=== PATIENT | female | born 1935 | race Caucasian/White ===

== ENCOUNTER 2021-07-22 15:27 | Outpatient (CLI) | payer MEDICARE, SELFPAY ==
--- NOTE | ~2021-07-22 | MR_ITS ---
EXAMINATION: MR lumbar spine wo con DATE: 07/22/2021 16:37 INDICATION: Radiculopathy, lumbar region. TECHNIQUE: Magnetic resonance imaging (MRI) of the lumbar spine was performed without intravenous con trast. Sequences included sagittal T2-weighted FSE, sagittal T2-weighted FS FSE, sagittal T1-weighted FSE, and axial T2-weighted FSE. COMPARISON: None FINDINGS: There is 15 degrees levoscoliosis of lumbar spine. There is 3 mm anterolisthesis of L2 on L 3 and L3 on L4. There is 5 mm anterolisthesis of L5 on S1. Vertebral body heights are normal. There i s moderately decreased disc height at L2-L3 and L5-S1 and mildly decreased disc height at L3-L4. The distal spinal cord signal intensity is normal. The conus medullaris is at T12-L1. The following disc levels are specifically discussed: L1-L2: The disc is bulging and has an annular fissure. There is severe right and moderate left facet joint osteoarthritis. There is mild bilateral neural foraminal stenosis. There is mild central canal stenosis. L2-L3: The disc is bulging and has an annular fissure. There is severe right and mild left facet join t osteoarthritis. There is mild bilateral neural foraminal stenosis. There is mild central canal sten osis. L3-L4: The disc is bulging and has an annular fissure. There is severe bilateral facet joint osteoart hritis. There is mild bilateral neural foraminal stenosis. There is mild central canal stenosis. L4-L5: The disc is also seen. There is severe bilateral facet joint osteoarthritis. There is moderate bilateral neural foraminal stenosis. There is mild central canal stenosis. L5-S1: The disc is bulging and has an annular fissure. There is severe bilateral facet joint osteoart hritis. There is mild right and moderate left neural foraminal stenosis. There is mild central canal stenosis. There is moderate stenosis of left lateral recess. IMPRESSION: 1. Moderate lumbar spondylosis. 2. Lumbar levoscoliosis. Reviewed, dictated and finalized at location A.
== END 2021-07-22 15:28 | disposition home or self-care (01) ==
LOC: ANHIMG 15:32
PROVIDERS: PCP Family Medicine; Visit Provider Family Medicine
DX: M54.16 Radiculopathy, lumbar region (principal); M47.816 Spondylosis without myelopathy or radiculopathy, lumbar region; M41.86 Other forms of scoliosis, lumbar region
CPT/HCPCS: 72148

== ENCOUNTER → 2021-10-14 14:53 | Outpatient (CLI) | payer MEDICARE, SELFPAY ==
--- NOTE | ~2021-10-14 | XR_ITS ---
XR hip RT 2V w AP pelvis 10/14/2021 15:52 Indication: Right hip pain Procedure: 3 views right hip Comparison: No prior studies for comparison. Findings: There is mild symmetric osteoarthritis of the hips. No fracture, subluxation or dislocation . No significant soft tissue abnormality. No foreign bodies. There is lower lumbar spondylosis partia lly visualized. Impression: 1: Mild symmetric osteoarthritis of the hips.. Reviewed, dictated and finalized at location A. AND MAXILLOFACIAL PATHOLOGIST Impression: 1: Mild symmetric osteoarthritis of the hips..
== END ==
PROVIDERS: PCP Family Medicine; Visit Provider Nurse Practitioner Adult Health
DX: M25.551 Pain in right hip (principal); M16.0 Bilateral primary osteoarthritis of hip
CPT/HCPCS: 73502

== ENCOUNTER 2022-01-29 09:39 | Outpatient (CLI) | payer MEDICARE, SELFPAY ==
[2022-01-29 10:15] LABS: Hematocrit 38.4 % (37.0-47.0); Hemoglobin 12.5 g/dL (12.0-15.0); Mean Corpuscular HGB Conc 32.6 g/dl (32-36); Mean Corpuscular Hemoglobin 30.6 pg (26-34); Mean Corpuscular Volume 93.9 fl (80-100); Mean Platelet Volume 10.8 fl (7.4-10.4); Platelet Count Result 155 k/mm3 (150-375); Red Blood Count 4.09 M/mm3 (4.2-5.4); Red Cell Distribution Width 12.5 % (11.5-14.5); White Blood Count 6.5 K/mm3 (4.5-10.0)
[2022-01-29 10:20] LABS: Add Urine Microscopic? YES; Appearance Urine Clear (Clear); Bilirubin Urine Negative (Negative); Blood Urine Negative (Negative); Color Urine Yellow (Yellow); Glucose Urine UA Negative (Negative); Ketones Urine Negative (Negative); Leukocyte Esterase Ur 3+ LEU/UL (NEGATIVE); Nitrate Urine Negative (Negative); Protein Urine Negative (Negative); Specific Grav Ur 1.008 (1.001-1.035); Urobilinogen Urine Negative mg/dL (<2.0)
[2022-01-29 10:45] LABS: Alanine Aminotransferase 23 U/L (4-35); Albumin Level 4.5 g/dL (3.5-5.1); Alkaline Phosphatase 66 U/L (38-126); Anion Gap 7 mmol/L (8-16); Aspartate Amino Transferase 41 U/L (14-36); Bilirubin,Total 0.9 mg/dL (0.2-1.3); Blood Urea Nitrogen 32 mg/dL (7-17); Calcium 9.2 mg/dL (8.4-10.2); Carbon Dioxide 29 mmol/L (22-30); Chloride 102 mmol/L (98-107); Cholesterol 176 mg/dL (0-200); Estimated Glomerular Filt Rate 28; Glucose 98 mg/dL (65-110); HDL Direct 42 mg/dL; Potassium 4.1 mmol/L (3.4-5.0); Sodium 138 mmol/L (137-145); Triglycerides 207 mg/dL (<150)
[2022-01-29 11:16] LABS: Thyroid Stimulating Hormone 0.551 uIU/mL (0.465-4.680)
[2022-01-29 13:18] LABS: LDL Cholesterol Direct 85 mg/dL
== END 2022-01-29 09:40 | disposition home or self-care (01) ==
PROVIDERS: PCP Family Medicine; Visit Provider Family Medicine
DX: E78.2 Mixed hyperlipidemia (principal); I11.9 Hypertensive heart disease without heart failure; R53.83 Other fatigue
CPT/HCPCS: 36415; 80053; 80061; 81001; 84443; 85027

== ENCOUNTER 2022-12-07 18:42 | Inpatient (IN) | payer MEDICARE, SELFPAY ==
[2022-12-07] VITALS (25 sets, daily range): BP systolic 117–163; BP diastolic 58–103; PULSE 106–138; RESP 20–39; TEMP 36.4; O2SAT 91–100; BMI 28.0
--- NOTE | ~2022-12-07 | XR_ITS ---
EXAMINATION: XR barium swallow modified DATE: 12/11/2022 13:23 INDICATION: Cough while swallowing. TECHNIQUE: The patient was given barium-containing material of multiple consistencies to swallow by t andres speech pathologist while I performed fluoroscopy. Fluoroscopy exposure time was 1.2 minutes. The n umber of fluoroscopy images saved to the PACS was 1. Dose-area product was 0.9 Gy-cm^2. FINDINGS: There was no laryngeal penetration or aspiration. IMPRESSION: 1. No laryngeal penetration or aspiration. 2. Please refer to the speech therapy report for recommendations. Reviewed, dictated and finalized at location A. [employer]
--- NOTE | ~2022-12-07 | MR_ITS ---
EXAMINATION: MR MRCP wo/w con/w 3D wo ind DATE: 12/08/2022 15:15 INDICATION: Right upper quadrant pain, nausea and vomiting TECHNIQUE: Magnetic resonance imaging (MRI) of the abdomen was performed without and with intravenous contrast. Sequences included coronal T2-weighted SS-FSE ARC, coronal T2-weighted FS SS-FSE, coronal T2-weighted 2D FS FIESTA, Water:Coronal LAVA-Flex, sagittal T2-weighted SS-FSE ARC, axial SSFSE ARC, axial 3D DualEcho, axial DWI B=600, axial T1-weighted LAVA, FAT:Coronal LAVA-Flex, and coronal in and opposed phase LAVA-Flex. Thick-slab T2-weighted FRFSE-XL images were obtained for magnetic resonance cholangiopancreatography (MRCP). Maximum intensity projection 3-D reconstructions of the volumetric data were created by the technologist. Postcontrast sequences included a time course of axial T1-weig hted LAVA, FAT:Coronal LAVA-Flex, coronal in and opposed phase LAVA-Flex, and Water:Coronal LAVA-Flex . COMPARISON: CT, 12/07/2022 CONTRAST: Multihance, 14 cc FINDINGS: ABDOMEN MRI: There are small bilateral pleural effusions. The gallbladder is surgically absent. The l iver, spleen, pancreatic parenchyma, and adrenal glands are normal. The left kidney is unremarkable. There is a 5 mm cyst of the right kidney upper pole. There are no pathologically enlarged abdominal l ymph nodes. No dilated loops of bowel are present. There is moderate lumbar spondylosis. Respiratory motion artifact limits the postcontrast sequences. No abnormal enhancement is identified after contra st administration. ABDOMEN MRCP: Respiratory motion artifact significantly limits the MRCP sequences. There is intrahepa tic and extra hepatic biliary dilatation as well as dilation of the pancreatic duct. The common bile duct measures up to 11 mm. There is a 1.8 x 0.6 cm stone in the distal common bile duct. IMPRESSION: 1. 1.8 x 0.6 cm stone of the distal common bile duct causing intrahepatic and extra hepatic biliary d ilatation and pancreatic ductal dilatation. Reviewed, dictated and finalized at location A. KNITTING MACHINE OPERATOR IMPRESSION: 1. 1.8 x 0.6 cm stone of the distal common bile duct causing intrahepatic and e xtra hepatic biliary dilatation and pancreatic ductal dilatation.
--- NOTE | ~2022-12-07 | XR_ITS ---
EXAMINATION: XR chest 1V portable DATE: 12/07/2022 21:40 INDICATION: Transient alteration of awareness. Multiple recent falls. TECHNIQUE: frontal view of the chest was obtained. COMPARISON: CT abdomen and pelvis dated 12/07/2022 FINDINGS: Diffuse increased interstitial pattern throughout both lungs relatively sparing the left upper lung z one. More patchy airspace opacities in the left lower lung zone. Very small bilateral pleural effusio ns. No pneumothorax. The cardiomediastinal silhouette is normal. IMPRESSION: 1. Diffuse pulmonary edema and small bilateral pleural effusions. Reviewed, dictated and finalized at location A. GEMENT COORDINATOR
--- NOTE | ~2022-12-07 | CT_ITS ---
EXAMINATION: CT abdomen pelvis w con DATE: 12/07/2022 20:48 INDICATION: Right upper quadrant abdominal pain, nausea and vomiting. TECHNIQUE: Computed tomography (CT) of the abdomen and pelvis was performed with 100 mL Omnipaque-350 intravenous contrast. Automated exposure control and iterative reconstruction technique were employe d. The dose-length product was 413.92 mGy-cm. COMPARISON: None FINDINGS: There is prominent smooth septal line thickening and patchy groundglass opacities in the bilateral lo wer lung zones consistent with mild pulmonary edema. There are also small bilateral posterior layerin g pleural effusions, right greater than left. Heart size is normal. Atherosclerotic coronary artery c alcifications. No pericardial effusion. Common bile duct is dilated to 10 mm which may be related to prior cholecystectomy although there appears be a meniscus sign at the distal duct suggesting possibl e distal obstructing gallstone. There is minimal intrahepatic biliary ductal dilation. Common bile du ct is also dilated to 6 mm at the body of the pancreas. Pancreas appears otherwise unremarkable with no peripancreatic inflammatory stranding to suggest acute pancreatitis. Spleen, bilateral adrenal gla nds and left kidney are normal. There are couple subcentimeter low-attenuation cysts in the right kid barbara. Mild diverticulosis with descending and sigmoid colon predominance. No bowel obstruction. The ap pendix is not visualized. No pericecal inflammatory change to suggest acute appendicitis. Bladder is normal. The uterus is not identified and has likely been surgically resected. Mild thoracolumbar levo curvature with moderate spondylosis. IMPRESSION: 1. Biliary and pancreatic ductal dilation with meniscus sign suggesting a possible distal obstructing stone in the common bile duct which measures up to 10 mm and a 6 mm Main pancreatic duct. Correlate with liver function tests and consider MRCP for more definitive determination as clinically indicated . 2. Mild pulmonary edema in the lower lung zones with small bilateral pleural effusions. Reviewed, dictated and finalized at location A. SPORTS SALES ASSOCIATE IMPRESSION: 1. Biliary and pancreatic ductal dilation with meniscus sign suggesting a possi ble distal obstructing stone in the common bile duct which measures up to 10 mm and a 6 mm Main pancreatic duct. Correlate with liver function tests and consi alex MRCP for more definitive determination as clinically indicated. 2. Mild pulmonary edema in the lower lung zones with small bilateral pleural ef fusions.
--- NOTE | ~2022-12-07 | CT_ITS ---
EXAMINATION: CT brain wo con DATE: 12/07/2022 19:27 INDICATION: Transient alteration of awareness TECHNIQUE: Computed tomography (CT) of the head was performed without intravenous contrast. Sagittal and coronal reconstructions were performed. The mA was adjusted according to patient size. Iterative reconstruction technique was employed. The dose-length product was 605.33 mGy-cm. COMPARISON: None FINDINGS: No acute intracranial hemorrhage, acute infarction or abnormal extra axial fluid collection. There is mild scattered white matter hypoattenuation consistent with chronic small vessel ischemic disease. S ymmetric prominence of the sulci and ventricles consistent with mild to moderate age-appropriate diff use cerebral volume loss. Ventricles are normal and symmetric. No mass/mass effect. Intracranial calc ified cerebral atherosclerosis is noted. The orbits, paranasal sinuses and mastoid air cells are norm al. IMPRESSION: 1. Normal aging brain. No acute intracranial process. Reviewed, dictated and finalized at location A. ALLATION COORDINATOR
--- NOTE | 2022-12-07 19:03 | ECG_ITS ---
Measurements Intervals [place] Rate: 132 P: 67 HI: 187 QRS: 38 QRSD: 89 T: 64 QT: 379 QTc: 562 Interpretive Statements SINUS TACHYCARDIA MINIMAL Q WAVES- ANTEROLAT/INF LEADS ST ELEVATION IN ANTERIOR LEADS CONSISTENT WITH INJURY, PERICARDITIS, OR EARLY REPOLARIZATION BASELINE ARTIFACT- I, II, AVR, V1, V4 ABNORMAL ECG NO PREVIOUS ECG AVAILABLE FOR COMPARISON Electronically Signed On 12-08-2022 8:05:29 MAINTENANCE SUPERINTENDENT by Silas Sears D.O.
[2022-12-07] MEDS: SODIUM CHLORIDE 0.9% IV 1,000 ML 999 ML IV CONT (19:48)
--- NOTE | 2022-12-07 19:48 | ED.GENADULT ---
HPI - General Adult General Chief complaint: Altered Mental Status Stated complaint: multiple falls, weakness Time Seen by Provider: 12/07/22 18:57 History of Present Illness HPI narrative: 86-year-old female with history of coronary disease, chronic kidney disease, hypertension presenting the emergency department for evaluation of altered mental status and increased falls. Patient's brother went to check on her and found her laying on the floor covered in yellow emesis. Patient's brother called EMS and patient arrived to the emergency department by EMS. Patient is normally alert and oriented x4 but is only ANO to self upon arrival. Patient denies any or chest pain. Patient denies any shortness of breath. Related Data Home Medications Medication Instructions Recorded Confirmed aspirin 81 mg tablet,delayed 81 mg PO DAILY 01/25/20 12/07/22 release (Adult Low Dose Aspirin) clonidine HCl 0.1 mg tablet 0.1 mg PO TID 12/07/22 12/07/22 metoprolol tartrate 25 mg tablet 25 mg PO BID 12/07/22 12/07/22 Allergies Allergy/AdvReac Type Severity Reaction Status Date / Time gabapentin Allergy Mild Rash Verified 12/02/22 09:36 Penicillins Allergy Unknown Unknown Verified 12/02/22 09:36 Review of Systems Review of Systems: CONSTITUTIONAL: Denies fever, chills, or sweats. EYES: Denies visual changes, redness, or discharge. ENT: Denies rhinorrhea, congestion, sore throat, or otalgia. CARDIOVASCULAR: Denies chest pain, palpitations, or edema. RESPIRATORY: Denies cough or dyspnea. GASTROINTESTINAL: See HPI GENITOURINARY: Denies dysuria or hematuria. SKIN: Denies rash or itching. MUSCULOSKELETAL: Denies back pain, joint pain, or myalgia. NEUROLOGIC: See HPI [facility] Past Medical History Medical History CAD (coronary artery disease) Chronic kidney disease, stage 4 (severe) HLD (hyperlipidemia) Hy ht/kd NOS I-IV w/o hf Hypertension with heart disease Lumbar spondylosis Wellness examination Surgical History Surgical History History of cholecystectomy History of hysterectomy with bilateral oophorectomy History of lumbar laminectomy for spinal cord decompression S/P coronary artery stent placement Social History Social History Smoking status: Never smoker Second hand tobacco smoke exposure: No Alcohol intake: never Substance use: never Substance use type: does not use Lack of Transportation: No Lack of Food: Never True Current Housing: I Have Housing Concerned About Future Housing: No Difficulty Paying Gas/Electric Bills: No Difficulty Paying for Meds: No Currently Unemployed: No Education: High School Diploma/GED Difficulty w/ Childcare or Family Care: No Gender identity (if verbalized by the patient): Female Sexual Orientation (if Verbalized by the Patient): Straight or Heterosexual Spiritual care concerns: No Exam Narrative: APPEARANCE: Ill-appearing HEAD: normocephalic, atraumatic. EYES: PERRLA/EOMI, conjunctivae clear. NOSE: Normal no drainage EARS:TMS clear with good light reflex. THROAT: Pharynx clear, no exudate. NECK: Supple. No adenopathy, no masses. RESPIRATORY: Airway patent, respirations nonlabored. Congestion bilaterally CARDIOVASCULAR: Sinus tachycardia ABDOMINAL: Upper abdominal tenderness to palpation, normal bowel sounds, not MUSCULOSKELETAL: Moves all extremities. Strength/ROM intact, No edema, No calf tenderness. NEURO: Alert. Cranial nerves II through XII intact. Grossly intact SKIN: Bruises of multiple stages Course Course Emergency Course: Patient was afebrile but does have a leukocytosis of 19.7. Patient's initial ABG had a pH of 7.528 and a PO2 of 61.7. Patient was placed on oxygen by nasal cannula in response to this. Patient's creatinine is similar to her baseline. Patient's initial lactic acid was
[2022-12-07 19:50] LABS: Alveolar/Arterial O2 Gradient 56.4 mmHg; Base Excess ABG 0.3 mEq/l (+/-2.0); Fractional Inspired Oxygen 21 %; HCO3 ABG 21.5 mEq/l (22.0-26.0); Oxygen Content ABG 18.7 %vol (16.0-22.0); Oxygen Saturation ABG 94.3 % (95.0-100.0); Oxyhemoglobin 90.8 % THb (90.0-100.0); PCO2 ABG 26.4 mmHg (35.0-45.0); PO2 ABG 61.7 mmHg (80.0-100.0); PO2 FiO2 Ratio Arterial Blood 2.94 %; Total Hemoglobin 14.7 g/dL (12.0-18.0)
[2022-12-07 19:51] LABS: Device ROOM AIR; Modified Allen's Test Unable to perform; Site Drawn LEFT BRACHIAL; pH ABG 7.528 (7.350-7.450)
[2022-12-07 20:13] LABS: Ammonia < 9 umol/L (9-30)
[2022-12-07 20:14] LABS: Basophils Percent Auto 0.2 % (0.2-1.2); Hematocrit 47.1 % (37.0-47.0); Immature Granulocyte Absolute 0.07 K/mm3 (0.00-0.031); Immature Granulocyte Percent A 0.4 % (0-0.5); Lymphocytes Absolute Auto 2.22 K/mm3 (0.9-3.2); Lymphocytes Percent Auto 13.8 % (18.3-44.2); Mean Corpuscular HGB Conc 31.8 g/dl (32-36); Mean Corpuscular Hemoglobin 30.7 pg (26-34); Mean Corpuscular Volume 96.5 fl (80-100); Mean Platelet Volume 11.5 fl (7.4-10.4); Monocytes Percent Auto 6.4 % (2.6-8.5); Neutrophils Absolute Auto 12.8 K/mm3 (1.3-6.7); Neutrophils Percent Auto 79.2 % (45.5-73.1); Platelet Count Result 221 k/mm3 (150-375); Red Blood Count 4.88 M/mm3 (4.2-5.4); White Blood Count 16.1 K/mm3 (4.5-10.0)
[2022-12-07 20:14] LABS: Alanine Aminotransferase 33 U/L (6-35); Albumin Level 4.7 g/dL (3.5-5.1); Alkaline Phosphatase 106 U/L (38-126); Anion Gap 13 mmol/L (8-16); Aspartate Amino Transferase 80 U/L (14-36); Bilirubin,Total 1.1 mg/dL (0.2-1.3); Blood Urea Nitrogen 32 mg/dL (7-17); Calcium 10.4 mg/dL (8.4-10.2); Carbon Dioxide 25 mmol/L (22-30); Chloride 105 mmol/L (98-107); Creatine Kinase 384 U/L (30-135); Estimated Glomerular Filt Rate 33; Glucose 166 mg/dL (65-110); Potassium 3.8 mmol/L (3.4-5.0); Sodium 143 mmol/L (137-145)
[2022-12-07 20:36] LABS: Appearance Urine Clear (Clear); Bilirubin Urine Negative (Negative); Blood Urine Trace-intact (Negative); Color Urine Yellow (Yellow); Glucose Urine UA Negative (Negative); Ketones Urine 1+ mg/dL (Negative); Leukocyte Esterase Ur 1+ LEU/UL (Negative); Nitrate Urine Negative (Negative); Protein Urine 2+ mg/dL (Negative); Specific Grav Ur 1.025 (1.001-1.035); Urobilinogen Urine 0.2 mg/dL (<2.0); pH Urine 5.5 (5.0-9.0)
[2022-12-07 20:40] LABS: Influenza A QL RT-PCR Negative (Negative); Influenza B QL RT-PCR Negative (Negative); RSV RNA, RT-PCR Negative (Negative); SARS-CoV-2 RNA PCR Negative
[2022-12-07 20:45] LABS: Lactic Acid Reflex 3.9 mmol/L (0.7-2.0)
[2022-12-07 20:52] LABS: Mucus Urine Rare /lpf; RBC Urine 0-2 /hpf (0-2); WBC Urine 0-3 /hpf
[2022-12-07 20:53] LABS: Add Urine Microscopic? YES
[2022-12-07 20:57] LABS: INR 1.2; Partial Thromboplastin Time 25.6 SECONDS (22.3-36.8); Prothrombin Time 14.8 Seconds (11.1-14.7)
[2022-12-07] MEDS: SODIUM CHLORIDE 0.9% IV 1,000 ML 500 ML IV CONT (21:18)
[2022-12-07] MEDS: METOPROLOL TARTRATE 25 MG TABLET PO (21:19)
--- NOTE | 2022-12-07 21:29 | PM.IMHP ---
H&P: HPI History of Present Illness Date/Time: 12/07/22 21:29 Chief Complaint: Altered mental status Narrative: This is an 86-year-old female with past medical history significant for coronary artery disease, chronic kidney disease, dyslipidemia, hypertension. Patient was brought to the emergency room for evaluation after brother came in to check on her and found her laying in bed covered in her own emesis. Last time patient was seen her usual was 2 days prior to this. In emergency room patient was found to have elevated troponins, patient is unable to give any history she is delirious, confused. Preliminary workup was significant for CT of abdomen and pelvis were was reported as: There is prominent smooth septal line thickening and patchy groundglass opacities in the bilateral lower lung zones consistent with mild pulmonary edema. There are also small bilateral posterior layering pleural effusions, right greater than left. Heart size is normal. Atherosclerotic coronary artery calcifications. No pericardial effusion. Common bile duct is dilated to 10 mm which may be related to prior cholecystectomy although there appears be a meniscus sign at the distal duct suggesting possible distal obstructing gallstone. There is minimal intrahepatic biliary ductal dilation. Common bile duct is also dilated to 6 mm at the body of the pancreas. Pancreas appears otherwise unremarkable with no peripancreatic inflammatory stranding to suggest acute pancreatitis. Spleen, bilateral adrenal glands and left kidney are normal. There are couple subcentimeter low-attenuation cysts in the right kidney. Mild diverticulosis with descending and sigmoid colon predominance. No bowel obstruction. The appendix is not visualized. No pericecal inflammatory change to suggest acute appendicitis. Bladder is normal. The uterus is not identified and has likely been surgically resected. Mild thoracolumbar levocurvature with moderate spondylosis. IMPRESSION: 1. Biliary and pancreatic ductal dilation with meniscus sign suggesting a possible distal obstructing stone in the common bile duct which measures up to 10 mm and a 6 mm Main pancreatic duct. Correlate with liver function tests and consider MRCP for more definitive determination as clinically indicated. 2. Mild pulmonary edema in the lower lung zones with small bilateral pleural effusions. A chest x-ray was reported as: Diffuse increased interstitial pattern throughout both lungs relatively sparing the left upper lung zone. More patchy airspace opacities in the left lower lung zone. Very small bilateral pleural effusions. No pneumothorax. The cardiomediastinal silhouette is normal. IMPRESSION: 1. Diffuse pulmonary edema and small bilateral pleural effusions. Patient has been admitted for further evaluation management and treatment. Review of Systems Review of Systems: ROS unobtainable: Yes unobtainable due to mental status (Delirium.) [facility] Past Medical History Medical History CAD (coronary artery disease) Chronic kidney disease, stage 4 (severe) HLD (hyperlipidemia) Hy ht/kd NOS I-IV w/o hf Hypertension with heart disease Lumbar spondylosis Wellness examination Surgical History Surgical History History of cholecystectomy History of hysterectomy with bilateral oophorectomy History of lumbar laminectomy for spinal cord decompression S/P coronary artery stent placement Social History Social History Smoking status: Never smoker Second hand tobacco smoke exposure: No Alcohol intake: never Substance use: never Substance use type: does not use Lack of Transportation: No Lack of Food: Never True Current Housing: I Have Housing Concerned About Future Housing: No Difficulty Paying Gas/Electric Bills: No Difficulty Paying for Meds: No Currently
[2022-12-07 22:16] LABS: Lipase 41 U/L (23-300)
[2022-12-07] MEDS: ASPIRIN 81 MG CHEWABLE TABLET 324 MG PO (23:03)
[2022-12-07 23:31] LABS: Reflex Lactic Acid Yes or No Add Lactic
[2022-12-08] VITALS (18 sets, daily range): BP systolic 117–153; BP diastolic 59–85; PULSE 76–125; RESP 22–38; TEMP 36.3–36.6; O2SAT 94–100
--- NOTE | 2022-12-08 | ECHO_ITS ---
Patient Info Name: Sade Becerra Age: 86 years : 1935 Gender: Female Ht: 62 in Wt: 153 lbs BSA: 1.76 m2 HR: 113 bpm BP: 119 / 78 mmHg Heart Rhythm: Sinus Rhythm, Tachycardia Technical Quality: Good Exam Date: 12/08/2022 9:50 AM Exam Location: [facility] Card Pulmonary Patient Status: Inpatient Admit Date: 12/07/2022 Staff Ordering Physician: Ema Ramos MD Issuer: Alexa Castellanos RDCS Attending Provider: Ema Ramos MD Referring Physician: Richard BROOKS; Exam Type: CA echo dop color flow w con Study Info Indications - ELEVATED TROPONIN Complete two-dimensional, color flow and Doppler transthoracic echocardiogram is performed with contrast to opacify the left ventricle and to improve the deliniation of the left ventricle endocardial borders. Contrast/Agitated Saline Contrast/Ag. Saline: Definity Amount: 4.00 ml Administered By: Alexa Castellanos RDCS Existing IV Access: Yes IV Access Condition: patent with no signs of infiltration Summary 1. Technically difficult study with limited views. 2. Left ventricular chamber dimension is mildly enlarged. 3. Left ventricular systolic function is moderately reduced, estimated at 35% with akinesis of the apex, apical lateral, apical septum, apical anterior, mid inferoseptum, mid anterolateral andrews with relative sparing at the bases. This maybe consistent with takotsubo cardiomyopathy. Clinical correlation advised. 4. Cannot exclude left ventricular thrombus at the apical lateral location. 5. There is no increased left ventricular wall thickness. 6. The left ventricular diastolic function is grade I diastolic dysfunction. 7. Global longitudinal strain is severely elevated at -5 %. 8. There is trace mitral valve regurgitation. 9. There is mild tricuspid valve regurgitation. 10. Severe pulmonary hypertension, estimated pulmonary arterial systolic pressure is 64 mmHg. 11. 0.8 x 1.5 cm echodensity in the right atrium possible prominent remnant eustachian valve can not exclude mass. Unable to characterize further given poor visualization in several views. Clinical correlation advised. 12. Right atrial chamber dimension is normal. Left Ventricle Left ventricular chamber dimension is mildly enlarged. Left ventricular systolic function is moderately reduced, estimated at 35% with akinesis of the apex, apical lateral, apical septum, apical anterior, mid inferoseptum, mid anterolateral andrews with relative sparing at the bases. This maybe consistent with takotsubo cardiomyopathy. Clinical correlation advised. There is no increased left ventricular wall thickness. The left ventricular diastolic function is grade I diastolic dysfunction. Global longitudinal strain is severely elevated at -5 %. Cannot exclude left ventricular thrombus at the apical lateral location. Technically difficult study with limited views. Right Ventricle Right ventricular chamber dimension is normal. Right ventricular systolic function is normal. Left Atria Left atrial chamber dimension is normal. Right Atria Right atrial chamber dimension is normal. 0.8 x 1.5 cm echodensity in the right atrium possible prominent remnant eustachian valve can not exclude mass. Unable to characterize further given poor visualization in several views. Clinical correlation advised. Aortic Valve The aortic valve is trileaflet. There is mild aortic valve sclerosis. There is no aortic valve stenosis. There is no aortic valve regurgitation.
[2022-12-08 00:04] LABS: Lactic Acid 2.3 mmol/L (0.7-2.0)
[2022-12-08] MEDS: ENOXAPARIN 80 MG/0.8 ML SYRINGE 70 MG SUB-Q ×2 (01:19→20:42)
--- NOTE | 2022-12-08 01:41 | ECG_ITS ---
Measurements Intervals [place] Rate: 99 P: 14 ME: 195 QRS: 39 QRSD: 86 T: 8 QT: 331 QTc: 425 Interpretive Statements SINUS RHYTHM BORDERLINE R WAVE PROGRESSION, ANTERIOR LEADS ST ELEVATION IN ANTERIOR LEADS CONSISTENT WITH INJURY, PERICARDITIS, OR EARLY REPOLARIZATION BASELINE ARTIFACT- I, II, III, AVR, AVL, AVF, V4-V6 ABNORMAL ECG COMPARED TO ECG 12/07/2022 19:55:05 SINUS RHYTHM NOW PRESENT Electronically Signed On 12-08-2022 20:41:18 UNLEAVENED DOUGH MIXER by Silas Sears D.O.
[2022-12-08] MEDS: FUROSEMIDE INJ 40 MG/4 ML VIAL IV PUSH (03:02)
[2022-12-08 04:17] LABS: Basophils Percent Auto 0.2 % (0.2-1.2); Hematocrit 40.8 % (37.0-47.0); Hemoglobin 13.2 g/dL (12.0-15.0); Immature Granulocyte Absolute 0.13 K/mm3 (0.00-0.031); Immature Granulocyte Percent A 0.7 % (0-0.5); Lymphocytes Absolute Auto 1.86 K/mm3 (0.9-3.2); Lymphocytes Percent Auto 9.5 % (18.3-44.2); Mean Corpuscular HGB Conc 32.4 g/dl (32-36); Mean Corpuscular Hemoglobin 30.1 pg (26-34); Mean Corpuscular Volume 92.9 fl (80-100); Mean Platelet Volume 11.8 fl (7.4-10.4); Monocytes Absolute Auto 1.2 K/mm3 (0.1-0.6); Monocytes Percent Auto 6.2 % (2.6-8.5); Neutrophils Absolute Auto 16.4 K/mm3 (1.3-6.7); Neutrophils Percent Auto 83.4 % (45.5-73.1); Platelet Count Result 195 k/mm3 (150-375); Red Blood Count 4.39 M/mm3 (4.2-5.4); Red Cell Distribution Width 13.2 % (11.5-14.5); White Blood Count 19.7 K/mm3 (4.5-10.0)
[2022-12-08 04:29] LABS: Anion Gap 9 mmol/L (8-16); Blood Urea Nitrogen 30 mg/dL (7-17); Calcium 8.8 mg/dL (8.4-10.2); Carbon Dioxide 21 mmol/L (22-30); Chloride 110 mmol/L (98-107); Estimated CRCL calculation 22 ml/min; Estimated Glomerular Filt Rate 33; Glucose 141 mg/dL (65-110); Potassium 3.7 mmol/L (3.4-5.0); Sodium 140 mmol/L (137-145)
[2022-12-08 04:37] LABS: NT Pro B Type Natriuretic Pept > 30000 pg/mL (19.9-100)
--- NOTE | 2022-12-08 05:47 | ADMGEN ---
This patient, Sade Becerra, was admitted to IMU Room 231-01. Patient/family oriented to hospital policies and general routines including ID bracelet, bed and alarms, visiting hours, pain management, procedures, bathroom and other care routines, personal items, smoking policy, room service/diet, and visiting hours. Information on how to activate the Rapid Response Team has been discussed. Patient/Family are encouraged to report perceived risks to care and to ask questions if they do not understand what they are told or what they should do. Patient also arrived to unit on BIPAP and O2 sats at 98%. Patient is alert to self only but cooperative with care. SBP is in normal limits. No drips on admission.
--- NOTE | 2022-12-08 08:19 | ECG_ITS ---
Measurements Intervals [place] Rate: 113 P: 64 MD: 197 QRS: 36 QRSD: 87 T: 3 QT: 351 QTc: 483 Interpretive Statements SINUS TACHYCARDIA ST-T WAVE ABNORMALITY IN ANTERIOR LEADS- CONSIDER ISCHEMIA ABNORMAL ECG COMPARED TO ECG 12/07/2022 19:55:05 NO SIGNIFICANT CHANGES Electronically Signed On 12-08-2022 9:32:52 TROLLEY COACH DRIVER by Silas Sears D.O.
[2022-12-08 09:01] LABS: Lactic Acid Reflex 1.5 mmol/L (0.7-2.0)
[2022-12-08 09:11] LABS: Alanine Aminotransferase 29 U/L (6-35); Albumin Level 3.6 g/dL (3.5-5.1); Alkaline Phosphatase 61 U/L (38-126); Aspartate Amino Transferase 77 U/L (14-36)
--- NOTE | 2022-12-08 09:15 | PM.CNCAR ---
Assessment and Plan Assessment and plan (1) Type 2 VT (myocardial infarction): Code(s): I21.A1 - Myocardial infarction type 2 Status: Acute Plan This is an 86-year-old lady who apparently has a history of coronary disease with previous PCI. She does not recall any of this at all. She was brought to the hospital after being found on the floor in her home apparently being down on the floor for a while as she was covered in her own vomitus. She by report normally is intact and oriented and now was only oriented times self. Troponin levels are significantly elevated. Her electrocardiogram appears to show anterior ST elevation yesterday which he came to the emergency room but she is not reporting any chest pain and there are no previous ECGs available in our chart for comparison purposes. At this time I would conclude this to be a type 2 infarction and manage this situation medically especially in this very elderly lady with significant compromise in her mental status. Echocardiogram will be reviewed when it is done later. It would be useful to have some old EKGs for review but that is not the case here. I will order another 1 for this morning to see if there are any evolutionary changes of a recent infarction. She does not appear to be a candidate for or requiring a specific ischemia evaluation at this time in my opinion. Cliff Mariano MD [facility] History of Present Illness History of Present Illness Consult date/time: 12/08/22 09:15 Reason For Visit: elevated troponin,altered mental status,bilateral Narrative: This is an 86-year-old woman I am seeing at the request of the hospitalist today because of troponin levels of which are elevated. The patient is unknown to me prior to this encounter today. She is a poor historian oriented only to herself and unable to provide any meaningful history otherwise. She was sleeping in bed when I entered the room to see her upon awakening she appears be comfortable response to questions appropriately but again is only oriented to self she cannot remember why she was brought to the hospital yesterday. She specifically denies remembering any chest pain yesterday nor is she experiencing any chest pain at this time. She apparently was brought to the hospital after being found by her brother went to check on her lying in the floor in her residence covered in her own vomitus. She was brought in here by ambulance. Her electrocardiogram shows sinus rhythm with some anterior precordial ST segment elevation but no reciprocal depression. Troponin levels were elevated at over 6 and have risen to just over 7. There have been no subsequent EKGs collected. My partner who was on-call yesterday recommended a dose of Lovenox and the patient to be seen today in consultation. The patient apparently has a history of coronary artery disease there are notes from her plastic joint maker elsewhere in the chart that describe a previous coronary stent. The note does not describe whether or not the patient has had a previous infarction. The only ECG in our chart here at [facility] for my review was the 1 from the emergency room yesterday. According to the record the principal reason they family we had her brought to the emergency room is because she is normally fully oriented and yesterday was confused and oriented only to herself which is not her standard baseline. Other than that troponin elevation her laboratory data is remarkable for leukocytosis. An echocardiogram has been ordered which is pending at the time of this dictation. The patient when asked specifically does not recall knowing about any history of heart disease in the past nor any recollection of seeing a plastic joint maker of which there are records in the chart. Review of Systems Review of Systems: ROS unobtainable: Yes unobtainable due to mental status [facility] Past Medical History Medical History CAD (coronar
--- NOTE | 2022-12-08 09:31 | PM.IMPN ---
Progress Note: A&P Assessment and Plan (1) Aspiration pneumonia: Code(s): J69.0 - Pneumonitis due to inhalation of food and vomit Status: Acute Assessment and Plan: Patient started on Levaquin. Will add metronidazole. Blood culture x2 (2) Acute respiratory failure with hypoxia: Code(s): J96.01 - Acute respiratory failure with hypoxia Status: Acute Assessment and Plan: Likely secondary to 1. Started on a BiPAP on arrival now tapered down to oxygen supplementation. Chest x-ray with diffuse pulmonary edema Received 1 dose of Lasix BNP elevated more than 30,000 Elevated troponin suggestive of ST-elevation [place] unknown timeline Supportive care as delineated and discussed with package lift operator Breathing treatments She does not look overtly volume overloaded clinically. Will hold off on further diuresis. (3) Type 2 KS (myocardial infarction): Code(s): I21.A1 - Myocardial infarction type 2 Status: Acute Assessment and Plan: Unknown timeline. Initial EKG with ST elevation in anterolateral inferior leads Given aspirin Repeat EKG with resolution of ST elevation dynamic change with T-wave inversions. Troponins elevated if again later. Echo ordered Cardiology consult and discussed with Cardiology Cover with Lovenox and increase beta Lilibeth as tolerated (4) N&V (nausea and vomiting): Code(s): R11.2 - Nausea with vomiting, unspecified Status: Acute Assessment and Plan: CT of abdomen and pelvis results review Recommendation for MRCP patient clinically stable to undergo procedure Will order MRCP CT reviewed with biliary dilatation LFTs are normal (5) AMS (altered mental status): Code(s): R41.82 - Altered mental status, unspecified Status: Acute Assessment and Plan: Likely secondary to toxic metabolic encephalopathy Supportive care CT of the head negative (6) CAD (coronary artery disease): Code(s): I25.10 - Atherosclerotic heart disease of [place] coronary artery without angina pectoris Status: Acute Assessment and Plan: No prior EKG for comparison Pre start home meds as needed (7) Chronic kidney disease, stage 4 (severe): Code(s): N18.4 - Chronic kidney disease, stage 4 (severe) Status: Acute Assessment and Plan: Continue to monitor BUN and creatinine Corona in Measure intake and output daily Daily BMP Creatinine at 1.5 continue to monitor Subjective Date/time seen: 12/08/22 09:31 Interval history: No overnight events. Patient remains confused. Discussed with the nursing staff. Discussed with package lift operator. EKG this a.m. reviewed. Denies any chest pain denies shortness of breath. Does not know why she is here she knows she is in the hospital Review of Systems Review of Systems: ROS unobtainable: Yes unobtainable due to mental status (Delirium.) Exam Narrative: APPEARANCE: Ill-appearing confused looking acute distress HEAD: normocephalic, atraumatic. EYES: PERRLA/EOMI, conjunctivae clear. NOSE: Normal no drainage THROAT: Pharynx clear, no exudate. NECK: Supple. No adenopathy, no masses. RESPIRATORY: Airway patent, respirations nonlabored.? Diminished breath sounds bilaterally no wheezes or crepitations heard CARDIOVASCULAR: Sinus tachycardia ABDOMINAL: Upper abdominal tenderness to palpation, normal bowel sounds MUSCULOSKELETAL: Moves all extremities. Strength/ROM intact, No edema, No calf tenderness. NEURO: Alert. Cranial nerves II through XII intact.? Grossly intact moving all extremities. Intake to self and place not to time SKIN: Bruises of multiple stages Objective Data Vital Signs Vital Signs: Vital Signs - 24 hr 12/07/22 18:48 12/07/22 19:50 12/07/22 19:29 Temperature Pulse Rate 131 H 134 H 137 H Respiratory Rate 20 Blood Pressure 145/102 H Pulse Oximetry 96 96 Oxygen Delivery Room Air Oxygen Flow Rate Fraction of Inspired Oxygen 12/07/22 19:
[2022-12-08] MEDS: METOPROLOL TARTRATE 12.5 MG TABLET 37.5 MG PO ×2 (10:11→20:43)
[2022-12-08] MEDS: metroNIDAZOLE 500 MG/ISO 100ML 500 MG/100 ML BAG 100 MG IVPB ×4 (10:11→23:58)
[2022-12-08] MEDS: lisinopriL 10 MG TABLET 30 MG PO (10:12)
[2022-12-08] MEDS: cloNIDine HCL 0.1 MG TABLET PO ×3 (10:12→17:46)
[2022-12-08] MEDS: SIMVASTATIN 20 MG TABLET PO (10:12)
[2022-12-08] MEDS: ASPIRIN 81 MG ENTERIC TABLET PO (10:12)
[2022-12-08] MEDS: PERFLUTREN LIPID MICROSPHERES 1.5 ML VIAL DILUTED TO 10 ML TOTAL VOLUME IV PUSH (10:25)
[2022-12-09] VITALS (19 sets, daily range): BP systolic 105–154; BP diastolic 55–67; PULSE 73–109; RESP 16–23; TEMP 36.1–36.9; O2SAT 93–100
[2022-12-09] MEDS: metroNIDAZOLE 500 MG/ISO 100ML 500 MG/100 ML BAG 100 MG IVPB ×3 (05:14→17:28)
[2022-12-09 08:03] LABS: Basophils Percent Auto 0.2 % (0.2-1.2); Hematocrit 34.7 % (37.0-47.0); Hemoglobin 11.1 g/dL (12.0-15.0); Immature Granulocyte Absolute 0.06 K/mm3 (0.00-0.031); Immature Granulocyte Percent A 0.4 % (0-0.5); Lymphocytes Absolute Auto 1.91 K/mm3 (0.9-3.2); Lymphocytes Percent Auto 12.7 % (18.3-44.2); Mean Corpuscular Hemoglobin 30.9 pg (26-34); Mean Corpuscular Volume 96.7 fl (80-100); Mean Platelet Volume 12.2 fl (7.4-10.4); Monocytes Absolute Auto 1.2 K/mm3 (0.1-0.6); Monocytes Percent Auto 7.7 % (2.6-8.5); Neutrophils Absolute Auto 11.9 K/mm3 (1.3-6.7); Platelet Count Result 142 k/mm3 (150-375); Red Blood Count 3.59 M/mm3 (4.2-5.4); Red Cell Distribution Width 13.3 % (11.5-14.5)
[2022-12-09 08:27] LABS: Alanine Aminotransferase 28 U/L (6-35); Albumin Level 3.5 g/dL (3.5-5.1); Alkaline Phosphatase 69 U/L (38-126); Anion Gap 8 mmol/L (8-16); Aspartate Amino Transferase 60 U/L (14-36); Bilirubin,Total 0.8 mg/dL (0.2-1.3); Blood Urea Nitrogen 55 mg/dL (7-17); Calcium 8.4 mg/dL (8.4-10.2); Carbon Dioxide 25 mmol/L (22-30); Chloride 110 mmol/L (98-107); Cholesterol 139 mg/dL (0-200); Estimated CRCL calculation 18 ml/min; Estimated Glomerular Filt Rate 21; Glucose 101 mg/dL (65-110); HDL Direct 32 mg/dL; Magnesium 1.4 mg/dL (1.6-2.3); Potassium 3.5 mmol/L (3.4-5.0); Sodium 143 mmol/L (137-145); Triglycerides 138 mg/dL (<150)
[2022-12-09 08:31] LABS: LDL Cholesterol Direct 77 mg/dL
[2022-12-09] MEDS: MAGNESIUM SULF 1 GM/D5W 100 ML 1 GM/100 ML BAG IVPB (10:58)
[2022-12-09] MEDS: SODIUM CHLORIDE 0.9% IV 1,000 ML 50 ML IV CONT (10:58)
--- NOTE | 2022-12-09 11:58 | PM.PNCARD ---
Progress Note: A&P Assessment and Plan (1) Acute respiratory failure with hypoxia: Code(s): J96.01 - Acute respiratory failure with hypoxia Status: Acute (2) Aspiration pneumonia: Code(s): J69.0 - Pneumonitis due to inhalation of food and vomit Status: Acute (3) AMS (altered mental status): Code(s): R41.82 - Altered mental status, unspecified Status: Acute (4) Type 2 [place] (myocardial infarction): Code(s): I21.A1 - Myocardial infarction type 2 Status: Acute (5) S/P coronary artery stent placement: Code(s): Z95.5 - Presence of coronary angioplasty implant and graft Status: Acute (6) Hypertension with heart disease: Code(s): I11.9 - Hypertensive heart disease without heart failure Status: Acute (7) CAD (coronary artery disease): Code(s): I25.10 - Atherosclerotic heart disease of [place] coronary artery without angina pectoris Status: Acute (8) HLD (hyperlipidemia): Qualifiers: Hyperlipidemia type: mixed hyperlipidemia Qualified Code(s): E78.2 - Mixed hyperlipidemia Code(s): E78.5 - Hyperlipidemia, unspecified Status: Acute (9) Chronic kidney disease, stage 4 (severe): Code(s): N18.4 - Chronic kidney disease, stage 4 (severe) Status: Acute Plan This is an 86-year-old lady who apparently has a history of coronary disease with previous PCI.? She does not recall any of this at all.? She was brought to the hospital after being found on the floor in her home apparently being down on the floor for a while as she was covered in her own vomitus.? Troponin levels are significantly elevated.? Her electrocardiogram appears to show anterior ST elevation on presentation when she came to the emergency room but she is not reporting any chest pain and there are no previous ECGs available in our chart for comparison purposes. Seen by my partner yesterday and thought to be a type 2 infarction, and recommended medical management. Did not appear to be a candidate for cath. 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 It was reported that an LV thrombus cannot be excluded. Trace MR, mild TR, severe pulmonary hypertension. There was concern about a 0.8cm x 1.5cm echodensity in the right atrium possible prominent remnant eustachian valve, however, could not exclude mass. I personally reviewed the echo images. LVEF is reduced. Contrast was given to better visualize the LV. I am not concerned about an LV thrombus. Echodensity seen in the right atrium, however, it is non-mobile, seen in certain views - not all views. Suspect that it may be a prominent eustachian valve or imelda terminalis. At this time, recommend medical management with ASA 81mg once daily. Will switch her statin to high-intensity one. Switch her metoprolol tartrate to succinate given reduced LVEF. Has been getting therapeutic Lovenox - would give TLOV for a total of 48 hours. Will start Jardiance. DARLENE is worsening. Maybe from overdiuresis. Lasix is now on hold. Lisinopril has been discontinued. Once DARLENE resolves, would resume ACEi/ARB/ARNI and consider addition of Aldactone. Subjective Date/time seen: 12/09/22 11:58 Interval history: Reason for visit: Elevated troponin HPI: This is an 86-year-old woman I am seeing at the request of the hospitalist today because of troponin levels of which are elevated.? The patient is unknown to me prior to this encounter today.? She is a poor historian oriented only to herself and unable to provide any meaningful history otherwise.? She was sleeping in bed when I entered the room to see her upon awakening she appears be comfortable response to questions appropriately but again is only oriented to self she cannot remember why she was brought to the hospital yesterday.? She specifically denies remembering any chest pain yesterday nor is she experiencing any chest pain at
--- NOTE | 2022-12-09 14:44 | WPDGICN ---
Assessment and Plan Assessment and plan (1) Choledocholithiasis: Code(s): K80.50 - Calculus of bile duct without cholangitis or cholecystitis without obstruction Status: Acute Assessment and Plan: imaging confirmed distal cbd stone, liver enzymes relatively normal wonder if presentation of acute nausea and vomiting related to biliary source but also had acute cardiac event will wait another day before proceeding with ERCP, she is comfortable and denies any chest pain (2) Aspiration pneumonia: Code(s): J69.0 - Pneumonitis due to inhalation of food and vomit Status: Acute Assessment and Plan: on antibiotics no respiratory distress (3) Acute respiratory failure with hypoxia: Code(s): J96.01 - Acute respiratory failure with hypoxia Status: Acute (4) AMS (altered mental status): Code(s): R41.82 - Altered mental status, unspecified Status: Acute Assessment and Plan: on admission, she is more oriented now (5) Type 2 SC (myocardial infarction): Code(s): I21.A1 - Myocardial infarction type 2 Status: Acute (6) Hypertension with heart disease: Code(s): I11.9 - Hypertensive heart disease without heart failure Status: Acute (7) Acute on chronic kidney failure: Code(s): N17.9 - Acute kidney failure, unspecified; N18.9 - Chronic kidney disease, unspecified Status: Acute Assessment and Plan: monitor (8) N&V (nausea and vomiting): Code(s): R11.2 - Nausea with vomiting, unspecified Status: Acute Assessment and Plan: resolved liquid diet for now then npo after midnight on preparation for ercp (9) Elevated troponin: Code(s): R77.8 - Other specified abnormalities of plasma proteins Status: Acute Assessment and Plan: by cardiology, stable troponin now GI Consult Note Consult date/time: 12/09/22 14:44 Reason for consult: n/v, choledocholithiasis HPI: Sade Becerra is a 86 year old female with history of coronary artery disease, chronic kidney disease (creatinine 15), dyslipidemia, hypertension.? Patient was brought to the emergency room for evaluation after brother came in to check on her and found her laying in bed covered in her own emesis.?Troponin levels were significantly elevated and cardiology evaluated patient, initially she was also confused but now she is more oriented. She currently denies any abdominal or chest pain, no more nausea. CT of abdomen and pelvis showed prominent smooth septal line thickening and patchy groundglass opacities in the bilateral lower lung zones consistent with mild pulmonary edema. Heart size is normal. Atherosclerotic coronary artery calcifications. No pericardial effusion. Common bile duct is dilated to 10 mm which may be related to prior cholecystectomy.. There is minimal intrahepatic biliary ductal dilation. Common bile duct is also dilated to 6 mm at the body of the pancreas. Pancreas appears otherwise unremarkable with no peripancreatic inflammatory stranding to suggest acute pancreatitis. Liver enzymes normal?only ast 60's, normal lipase. MRCP confirmed choledocholithiasis. Cardiology recommend medical management. Brother at bedside and says that patient about 4-5 years ago had pancreatic leak that required intervention at [facility] , patient is not best historian. Review of Systems Review of Systems: CONSTITUTIONAL: Denies fever, chills, or sweats. EYES: Denies visual changes, redness, or discharge. ENT: Denies rhinorrhea, congestion, sore throat, or otalgia. CARDIOVASCULAR: Denies chest pain, palpitations, or edema. RESPIRATORY: Denies cough or dyspnea. GASTROINTESTINAL: See HPI GENITOURINARY: Denies dysuria or hematuria. SKIN: Denies rash or itching. MUSCULOSKELETAL: Denies back pain, joint pain, or myalgia. NEUROLOGIC: See HPI [facility] Past Medical History Medical History (Updated 12/09/22 @ 14:50 by Mu Miranda MD) Acute on c
[2022-12-09] MEDS: cloNIDine HCL 0.1 MG TABLET PO (16:03)
--- NOTE | 2022-12-09 17:58 | PCSTNOTE ---
Please refer to the Bedside Swallow Evaluation in the EMR. Please note, silent aspiration cannot be ruled out at bedside.
--- NOTE | 2022-12-09 18:30 | PM.IMPN ---
Progress Note: A&P Assessment and Plan (1) Aspiration pneumonia: Code(s): J69.0 - Pneumonitis due to inhalation of food and vomit Status: Acute Assessment and Plan: Patient started on Levaquin added metronidazole Blood culture x2 negative to date (2) Acute respiratory failure with hypoxia: Code(s): J96.01 - Acute respiratory failure with hypoxia Status: Acute Assessment and Plan: Likely secondary to 1. Started on a BiPAP on arrival now tapered down to oxygen supplementation. Chest x-ray with diffuse pulmonary edema Received 1 dose of Lasix BNP elevated more than 30,000 Elevated troponin suggestive of ST-elevation [place] unknown timeline Supportive care as delineated and discussed with substance abuse therapist Breathing treatments She does not look overtly volume overloaded clinically. Hold of further diuresis Creatinine bumped up as well Will give gentle fluid today since NPO as well Recheck renal function in a.m. (3) Type 2 [place] (myocardial infarction): Code(s): I21.A1 - Myocardial infarction type 2 Status: Acute Assessment and Plan: Unknown timeline. Initial EKG with ST elevation in anterolateral inferior leads Given aspirin Repeat EKG with resolution of ST elevation dynamic change with T-wave inversions. Troponins elevated if again later. Echo ordered Cardiology consult and discussed with Cardiology Cover with Lovenox and increase beta Lilibeth as tolerated Discussed with substance abuse therapist. Medical management recommended. (4) N&V (nausea and vomiting): Code(s): R11.2 - Nausea with vomiting, unspecified Status: Acute Assessment and Plan: CT of abdomen and pelvis results review Recommendation for MRCP patient clinically stable to undergo procedure CT reviewed with biliary dilatation LFTs are normal MRCP positive for CBD stone. GI consulted Plan for ERCP noted (5) AMS (altered mental status): Code(s): R41.82 - Altered mental status, unspecified Status: Acute Assessment and Plan: Likely secondary to toxic metabolic encephalopathy Supportive care CT of the head negative (6) CAD (coronary artery disease): Code(s): I25.10 - Atherosclerotic heart disease of [place] coronary artery without angina pectoris Status: Acute Assessment and Plan: No prior EKG for comparison Pre start home meds as needed (7) Chronic kidney disease, stage 4 (severe): Code(s): N18.4 - Chronic kidney disease, stage 4 (severe) Status: Acute Assessment and Plan: Continue to monitor BUN and creatinine [place] in Measure intake and output daily Daily BMP Creatinine at 1.5 continue to monitor Now with DARLENE and CKD stage 3 Creatinine up to 2.2 Hold lisinopril Hold diuresis Gentle IV fluid Recheck in a.m. Subjective Date/time seen: 12/09/22 18:30 Interval history: No overnight events. Patient more alert. Discussed with GI and substance abuse therapist. Discussed with speech therapy. This is the nursing staff. Coughs whenever she is given medication by mouth. Review of Systems Review of Systems: All systems reviewed & are unremarkable except as noted in HPI and below Exam Narrative: APPEARANCE: Ill-appearing more alert acute distress HEAD: normocephalic, atraumatic. EYES: PERRLA/EOMI, conjunctivae clear. NOSE: Normal no drainage THROAT: Pharynx clear, no exudate. NECK: Supple. No adenopathy, no masses. RESPIRATORY: Airway patent, respirations nonlabored.? Diminished breath sounds bilaterally no wheezes or crepitations heard CARDIOVASCULAR: Mild tachycardia S1-S2 ABDOMINAL: Upper abdominal tenderness to palpation, normal bowel sounds MUSCULOSKELETAL: Moves all extremities. Strength/ROM intact, No edema, No calf tenderness. NEURO: Alert. Cranial nerves II through XII intact.? Grossly intact moving all extremities. Intake to self and place not to time SKIN: Bruises of multiple stages Objective Data Vital Signs Vital Signs: V
[2022-12-09] MEDS: METOPROLOL TARTRATE 12.5 MG TABLET 37.5 MG PO (20:54)
[2022-12-09] MEDS: ENOXAPARIN 80 MG/0.8 ML SYRINGE 70 MG SUB-Q (22:58)
[2022-12-10] VITALS (14 sets, daily range): BP systolic 120–147; BP diastolic 63–88; PULSE 80–103; RESP 16–27; TEMP 36.4–36.6; O2SAT 93–97
[2022-12-10] MEDS: ACETAMINOPHEN 325 MG TABLET 650 MG PO ×2 (00:34→20:41)
[2022-12-10] MEDS: metroNIDAZOLE 500 MG/ISO 100ML 500 MG/100 ML BAG 100 MG IVPB ×5 (00:35→23:14)
[2022-12-10 04:39] LABS: Basophils Percent Auto 0.2 % (0.2-1.2); Eosinophils Percent Auto 0.2 % (0-4.4); Hematocrit 30.8 % (37.0-47.0); Hemoglobin 9.9 g/dL (12.0-15.0); Immature Granulocyte Absolute 0.04 K/mm3 (0.00-0.031); Immature Granulocyte Percent A 0.3 % (0-0.5); Immature Platelet Fraction Pct 9.2 % (0.9-11.2); Lymphocytes Absolute Auto 1.95 K/mm3 (0.9-3.2); Lymphocytes Percent Auto 16.6 % (18.3-44.2); Mean Corpuscular HGB Conc 32.1 g/dl (32-36); Mean Corpuscular Hemoglobin 30.8 pg (26-34); Mean Platelet Volume 11.9 fl (7.4-10.4); Monocytes Absolute Auto 0.9 K/mm3 (0.1-0.6); Monocytes Percent Auto 7.4 % (2.6-8.5); Neutrophils Absolute Auto 8.8 K/mm3 (1.3-6.7); Neutrophils Percent Auto 75.3 % (45.5-73.1); Platelet Count Result 136 k/mm3 (150-375); Red Blood Count 3.21 M/mm3 (4.2-5.4); Red Cell Distribution Width 13.2 % (11.5-14.5); White Blood Count 11.7 K/mm3 (4.5-10.0)
[2022-12-10 04:53] LABS: Alanine Aminotransferase 26 U/L (6-35); Albumin Level 3.2 g/dL (3.5-5.1); Alkaline Phosphatase 61 U/L (38-126); Anion Gap 6 mmol/L (8-16); Aspartate Amino Transferase 50 U/L (14-36); Bilirubin,Total 0.7 mg/dL (0.2-1.3); Blood Urea Nitrogen 56 mg/dL (7-17); Calcium 7.7 mg/dL (8.4-10.2); Carbon Dioxide 22 mmol/L (22-30); Chloride 107 mmol/L (98-107); Estimated CRCL calculation 16 ml/min; Estimated Glomerular Filt Rate 22; Glucose 118 mg/dL (65-110); Magnesium 1.8 mg/dL (1.6-2.3); Potassium 3.3 mmol/L (3.4-5.0); Sodium 135 mmol/L (137-145)
[2022-12-10] MEDS: SODIUM CHLORIDE 0.9% IV 1,000 ML 50 ML IV CONT (05:41)
--- NOTE | 2022-12-10 09:30 | PCSTNOTE ---
Radiology reports patient is scheduled for ERCP at 12:30, unable to do MBS before ERCP and unlikely able to do it after. They expect to be able to complete the MBS tomorrow morning.
--- NOTE | 2022-12-10 11:41 | PM.IMPN ---
Progress Note: A&P Assessment and Plan (1) Aspiration pneumonia: Code(s): J69.0 - Pneumonitis due to inhalation of food and vomit Status: Acute (2) Acute respiratory failure with hypoxia: Code(s): J96.01 - Acute respiratory failure with hypoxia Status: Acute (3) Hypertension with heart disease: Code(s): I11.9 - Hypertensive heart disease without heart failure Status: Acute (4) Chronic kidney disease, stage 4 (severe): Code(s): N18.4 - Chronic kidney disease, stage 4 (severe) Status: Acute (5) Choledocholithiasis: Code(s): K80.50 - Calculus of bile duct without cholangitis or cholecystitis without obstruction Status: Acute Plan Patient has a common duct stone: Undergoing ERCP today Chest x-ray showed pulmonary edema/ pneumonia Blood cultures pending WBC count improved Hemoglobin dropped from 13.2-9.9 will continue to monitor Continue diuresis. Lisinopril on hold History of aortic stenosis with ejection fraction of 35% medical management only. Will continue BiPAP Avoid nephrotoxic drugs. Monitor antihypertensive drugs Avoid NSAIDs. Routine CMP monitor GFR. 21 Creatinine of 2.1. Potassium 3.3 will replace Slight elevation AST which is back to baseline. Alkaline phosphatases is normal Monitor electrolytes potassium levels. Dose antibiotics depending on creatinine clearance Continue levofloxacin and Flagyl Routine follow-up with PCP and cafeteria aide recommended For Time Spent With Patient Time: DVT prophylaxis. GI prophylaxis. All records reviewed Discussed plan of care with the nursing staff and with the patient in detail. Answered all questions and concerns from the patient. All labs have been reviewed. Code status updated dictation may have been done utilizing a voice recognition system. Attempts have been made to correct errors. However, there may be uncorrected grammatical, spelling, and recognition errors present. Subjective Date/time seen: 12/10/22 11:41 Interval history: Patient denies any abdominal pain no cough appears comfortable and very anxious go home Exam Narrative: GENERAL: Well appearing, well-nourished, non-toxic, in no acute distress. HEAD: Normocephalic, atraumatic. NECK: Supple. No adenopathy, no masses. RESPIRATORY: Airway patent, respirations nonlabored. Clear to auscultation bilaterally, no rales, rhonchi, wheezing. CARDIOVASCULAR: Regular rate and rhythm without murmurs, rubs, or gallops. Peripheral pulses 2+ and equal bilaterally. ABDOMINAL: Soft, nontender, nondistended, no hepatosplenomegaly. Normoactive BS. MUSCULOSKELETAL: no Epigastric and no hypochondrial tenderness SKIN: Warm, dry, normal color. No rashes. NEURO: A&O X3. Moves all extremities PSYCHIATRIC: Appropriate mood and affect. Normal interaction. Objective Data Vital Signs Vital Signs: Vital Signs - 24 hr 12/09/22 12:02 12/09/22 12:00 12/09/22 12:00 Temperature 36.7 C Pulse Rate 102 H 97 103 H Respiratory Rate 20 20 Blood Pressure 134/67 Pulse Oximetry 98 97 Oxygen Delivery Nasal Cannula Oxygen Flow Rate 3 Fraction of Inspired Oxygen 12/09/22 16:24 12/09/22 16:00 12/09/22 14:00 Temperature 36.1 C L Pulse Rate 104 H 101 H 88 Respiratory Rate 20 20 Blood Pressure 137/59 L Pulse Oximetry 97 96 Oxygen Delivery Nasal Cannula Oxygen Flow Rate 3 Fraction of Inspired Oxygen 12/09/22 16:00 12/09/22 18:00 12/09/22 20:00 Temperature 36.4 C L Pulse Rate 107 H 99 91 Respiratory Rate 16 Blood Pressure 120/66 Pulse Oximetry 97 Oxygen Delivery Oxygen Flow Rate Fraction of Inspired Oxygen 12/09/22 20:54 12/09/22 20:00 12/09/22 20:00 Temperature Pulse Rate 93 104 H 104 H Respiratory Rate 16 Blood Pressure Pulse Oximetry 97 Oxygen Delivery Nasal Cannula Oxygen Flow Rate 2 Fraction of Inspired Oxygen 40 12/09/22 22:00 12/09/22 23:43 12/10/22 00:00 Temp
[2022-12-10] MEDS: ONDANSETRON INJ 4 MG/2 ML VIAL IV PUSH ×2 (12:13→20:41)
[2022-12-10] MEDS: POTASSIUM CHLORIDE INJ 40 MEQ in SODIUM CHLORIDE 0.9% IV 500 ML 130 MEQ IVPB (12:14)
--- NOTE | 2022-12-10 12:35 | WPDGIPROGNO ---
Progress Note: A&P Assessment and Plan (1) Choledocholithiasis: Code(s): K80.50 - Calculus of bile duct without cholangitis or cholecystitis without obstruction Status: Acute Assessment and Plan: agree with anesthesiologist that will be high risk to undergo general anesthesia (recent heart attack with high troponin, also found to have low ejection fraction and severe pulmonary HTN, required bipap last night), furthermore her liver enzymes almost normal (bili and AP), no evidence of cholangitis and denies abdominal pain recommend for now conservative management, CL diet for now (2) Type 2 SC (myocardial infarction): Code(s): I21.A1 - Myocardial infarction type 2 Status: Acute Assessment and Plan: by cardiology, medical management (3) Aspiration pneumonia: Code(s): J69.0 - Pneumonitis due to inhalation of food and vomit Status: Acute Assessment and Plan: by primary (4) Acute respiratory failure with hypoxia: Code(s): J96.01 - Acute respiratory failure with hypoxia Status: Acute Assessment and Plan: required bipap last night (5) Acute on chronic kidney failure: Code(s): N17.9 - Acute kidney failure, unspecified; N18.9 - Chronic kidney disease, unspecified Status: Acute (6) Hypertension with heart disease: Code(s): I11.9 - Hypertensive heart disease without heart failure Status: Acute Subjective Date/time seen: 12/10/22 12:35 Interval history: I had lengthy discussion with anesthesiology and decided that she will be too high risk to undergo general anesthesia and canceled ERCP (she had choledocholithiasis but normal AP and bili, no cholangitis, her abdominal exam is benign), patient last night required bipap and recent SC with troponin 8, also cardiomyopathy with severe pulmonary htn. Review of Systems Review of Systems: All systems reviewed & are unremarkable except as noted in HPI and below Exam Const: General: no acute distress Other: cough HENMT: Mouth: Yes moist mucous membranes Eyes: Sclera: sclerae normal Neck: Neck: supple and no JVD Resp: Effort & Inspection: normal respiratory effort Auscultation: diminished lung sounds Cardio: Rate: regular rate Rhythm: regular rhythm GI: GI Palp: Yes Soft to palpation, No Tenderness to palpation present (GI) and No Guarding due to palpation present (GI) Auscultation: normal bowel sounds Skin: General skin exam: normal color Neuro: Speech: normal speech Motor exam (neuro): 5/5 motor strength present throughout Other: Patient is alert and responsive and arousable. Oriented only to self and location. Extrem: General: normal to inspection Psych: Affect: Anxious affect present Objective Data Vital Signs Vital Signs: Vital Signs - 24 hr 12/09/22 16:24 12/09/22 16:00 12/09/22 14:00 Temperature 97.0 F L Pulse Rate 104 H 101 H 88 Respiratory Rate 20 20 Blood Pressure 137/59 L Pulse Oximetry 97 96 Oxygen Delivery Nasal Cannula Oxygen Flow Rate 3 Fraction of Inspired Oxygen 12/09/22 16:00 12/09/22 18:00 12/09/22 20:00 Temperature 97.5 F L Pulse Rate 107 H 99 91 Respiratory Rate 16 Blood Pressure 120/66 Pulse Oximetry 97 Oxygen Delivery Oxygen Flow Rate Fraction of Inspired Oxygen 12/09/22 20:54 12/09/22 20:00 12/09/22 20:00 Temperature Pulse Rate 93 104 H 104 H Respiratory Rate 16 Blood Pressure Pulse Oximetry 97 Oxygen Delivery Nasal Cannula Oxygen Flow Rate 2 Fraction of Inspired Oxygen 40 12/09/22 22:00 12/09/22 23:43 12/10/22 00:00 Temperature 97.4 F L Pulse Rate 101 H 89 84 Respiratory Rate 18 Blood Pressure 119/60 Pulse Oximetry 98 Oxygen Delivery Oxygen Flow Rate Fraction of Inspired Oxygen 12/10/22 00:00 12/10/22 02:00 12/10/22 04:00 Temperature Pulse Rate 89 100 98 Respiratory Rate 18 Blood Pressure Pulse Oximetry 97 Oxygen Deliv
[2022-12-10] MEDS: ATORVASTATIN 40 MG TABLET 80 MG PO (15:12)
[2022-12-10] MEDS: cloNIDine HCL 0.1 MG TABLET PO (15:13)
[2022-12-10] MEDS: METOPROLOL SUCCINATE EXT REL 25 MG, METOPROLOL SUCCINATE EXT REL 50 MG 75 MG PO (15:13)
[2022-12-10] MEDS: ASPIRIN 81 MG ENTERIC TABLET PO (15:15)
[2022-12-10] MEDS: EMPAGLIFLOZIN 10 MG TABLET PO (15:15)
[2022-12-10] MEDS: ENOXAPARIN 80 MG/0.8 ML SYRINGE 70 MG SUB-Q (20:40)
[2022-12-11] VITALS (30 sets, daily range): BP systolic 126–153; BP diastolic 61–84; PULSE 57–101; RESP 16–22; TEMP 36.2–36.6; O2SAT 93–99
[2022-12-11] MEDS: SODIUM CHLORIDE 0.9% IV 1,000 ML 50 ML IV CONT (00:20)
[2022-12-11] MEDS: metroNIDAZOLE 500 MG/ISO 100ML 500 MG/100 ML BAG 100 MG IVPB ×4 (06:04→23:24)
[2022-12-11] MEDS: ASPIRIN 81 MG ENTERIC TABLET PO (08:15)
[2022-12-11] MEDS: METOPROLOL SUCCINATE EXT REL 25 MG, METOPROLOL SUCCINATE EXT REL 50 MG 75 MG PO (08:15)
[2022-12-11] MEDS: cloNIDine HCL 0.1 MG TABLET PO ×3 (08:15→17:17)
[2022-12-11] MEDS: ATORVASTATIN 40 MG TABLET 80 MG PO (08:15)
[2022-12-11] MEDS: EMPAGLIFLOZIN 10 MG TABLET PO (08:16)
[2022-12-11 08:21] LABS: Hematocrit 33.1 % (37.0-47.0); Hemoglobin 10.5 g/dL (12.0-15.0); Mean Corpuscular HGB Conc 31.7 g/dl (32-36); Mean Corpuscular Volume 94.6 fl (80-100); Mean Platelet Volume 12.2 fl (7.4-10.4); Platelet Count Result 129 k/mm3 (150-375); Red Cell Distribution Width 13.3 % (11.5-14.5); White Blood Count 10.6 K/mm3 (4.5-10.0)
[2022-12-11 08:50] LABS: Anion Gap 8 mmol/L (8-16); Blood Urea Nitrogen 40 mg/dL (7-17); Calcium 7.7 mg/dL (8.4-10.2); Carbon Dioxide 18 mmol/L (22-30); Chloride 115 mmol/L (98-107); Estimated CRCL calculation 23 ml/min; Estimated Glomerular Filt Rate 33; Glucose 110 mg/dL (65-110); Magnesium 1.9 mg/dL (1.6-2.3); Potassium 3.9 mmol/L (3.4-5.0); Sodium 141 mmol/L (137-145)
--- NOTE | 2022-12-11 12:34 | PM.IMPN ---
Progress Note: A&P Assessment and Plan (1) Aspiration pneumonia: Code(s): J69.0 - Pneumonitis due to inhalation of food and vomit Status: Acute (2) Acute respiratory failure with hypoxia: Code(s): J96.01 - Acute respiratory failure with hypoxia Status: Acute (3) Hypertension with heart disease: Code(s): I11.9 - Hypertensive heart disease without heart failure Status: Acute (4) Chronic kidney disease, stage 4 (severe): Code(s): N18.4 - Chronic kidney disease, stage 4 (severe) Status: Acute (5) Choledocholithiasis: Code(s): K80.50 - Calculus of bile duct without cholangitis or cholecystitis without obstruction Status: Acute Plan Patient has a common duct stone: ERCP was canceled due to high risk Medical management only Chest x-ray showed pulmonary edema/ pneumonia Blood cultures pending WBC count improved H/H 10.5/33.1 Continue diuresis. Lisinopril on hold History of aortic stenosis with ejection fraction of 35% medical management only. Will continue BiPAP Avoid nephrotoxic drugs. Monitor antihypertensive drugs Avoid NSAIDs. Routine CMP monitor GFR. Thirty-three Creatinine of 1.50 Potassium 3.9 Slight elevation AST which is back to baseline. Alkaline phosphatases is normal Monitor electrolytes potassium levels. Dose antibiotics depending on creatinine clearance Continue levofloxacin and Flagyl Routine follow-up with PCP and erp project manager recommended Starting PT OT awaiting for placement Time Spent With Patient Time: DVT prophylaxis. GI prophylaxis. All records reviewed Discussed plan of care with the nursing staff and with the patient in detail. Answered all questions and concerns from the patient. All labs have been reviewed. Code status updated dictation may have been done utilizing a voice recognition system. Attempts have been made to correct errors. However, there may be uncorrected grammatical, spelling, and recognition errors present. Subjective Date/time seen: 12/11/22 12:34 Interval history: Patient up on chair eating very well denies any complaints Exam Narrative: GENERAL: Well appearing, well-nourished, non-toxic, in no acute distress. HEAD: Normocephalic, atraumatic. NECK: Supple. No adenopathy, no masses. RESPIRATORY: Airway patent, respirations nonlabored. Clear to auscultation bilaterally, no rales, rhonchi, wheezing. CARDIOVASCULAR: Regular rate and rhythm without murmurs, rubs, or gallops. Peripheral pulses 2+ and equal bilaterally. ABDOMINAL: Soft, nontender, nondistended, no hepatosplenomegaly. Normoactive BS. MUSCULOSKELETAL: no Epigastric and no hypochondrial tenderness SKIN: Warm, dry, normal color. No rashes. NEURO: A&O X3. Moves all extremities PSYCHIATRIC: Appropriate mood and affect. Normal interaction. Objective Data Vital Signs Vital Signs: Vital Signs - 24 hr 12/10/22 14:00 12/10/22 16:00 12/10/22 16:00 Temperature Pulse Rate 98 84 86 Respiratory Rate 18 Blood Pressure Pulse Oximetry 96 Oxygen Delivery Nasal Cannula Oxygen Flow Rate 1 Fraction of Inspired Oxygen 12/10/22 16:00 12/10/22 18:00 12/10/22 20:00 Temperature 36.4 C L 36.6 C Pulse Rate 90 85 88 Respiratory Rate 20 16 Blood Pressure 122/63 120/88 Pulse Oximetry 96 96 Oxygen Delivery Oxygen Flow Rate Fraction of Inspired Oxygen 12/10/22 20:00 12/10/22 20:00 12/10/22 22:00 Temperature Pulse Rate 86 86 82 Respiratory Rate 16 Blood Pressure Pulse Oximetry 96 Oxygen Delivery Nasal Cannula Oxygen Flow Rate 2 Fraction of Inspired Oxygen 40 12/10/22 23:52 12/10/22 23:45 12/11/22 00:00 Temperature 36.5 C Pulse Rate 84 80 74 Respiratory Rate 18 27 H Blood Pressure 138/68 Pulse Oximetry 93 94 Oxygen Delivery BiPAP Oxygen Flow Rate Fraction of Inspired Oxygen 12/11/22 00:00 12/11/22 02:23 12/11/22 02:00 Temperature Pulse Rate 84 78 84 Resp
--- NOTE | 2022-12-11 12:39 | WPDGIPROGNO ---
Progress Note: A&P Assessment and Plan (1) Choledocholithiasis: Code(s): K80.50 - Calculus of bile duct without cholangitis or cholecystitis without obstruction Status: Acute Assessment and Plan: reviewed mrcp and stone however liver enzymes normal and she is not having any abdominal pain and no more nausea tolerating diet also reviewed records from 2019, had ercp because GS pancreatitis (required also drainage) and finally had cholecystectomy. patient already has sphincterotomy, no signs of biliary obstruction she is high risk for general anesthesia given severe pulmonary HTN with recent heart attack, since she is clinically doing ok, recommend conservative treatment (2) Acute respiratory failure with hypoxia: Code(s): J96.01 - Acute respiratory failure with hypoxia Status: Acute Assessment and Plan: improved, she required bipap, comfortable (3) Type 2 AL (myocardial infarction): Code(s): I21.A1 - Myocardial infarction type 2 Status: Acute Assessment and Plan: medical management per cardiology denies any chest pain (4) Aspiration pneumonia: Code(s): J69.0 - Pneumonitis due to inhalation of food and vomit Status: Acute Assessment and Plan: on abx (5) Acute on chronic kidney failure: Code(s): N17.9 - Acute kidney failure, unspecified; N18.9 - Chronic kidney disease, unspecified Status: Acute Assessment and Plan: improved Subjective Date/time seen: 12/11/22 12:39 Interval history: no abdominal pain or nausea. Review of Systems Review of Systems: All systems reviewed & are unremarkable except as noted in HPI and below Exam Const: General: no acute distress Other: cough HENMT: Mouth: Yes moist mucous membranes Eyes: Sclera: sclerae normal Neck: Neck: supple Resp: Effort & Inspection: normal respiratory effort Auscultation: diminished lung sounds Cardio: Rate: regular rate Rhythm: regular rhythm GI: GI Palp: Yes Soft to palpation, No Tenderness to palpation present (GI) and No Guarding due to palpation present (GI) Auscultation: normal bowel sounds Skin: General skin exam: normal color Neuro: Speech: normal speech Motor exam (neuro): 5/5 motor strength present throughout Extrem: General: normal to inspection Psych: Affect: Anxious affect present Objective Data Vital Signs Vital Signs: Vital Signs - 24 hr 12/10/22 14:00 12/10/22 16:00 12/10/22 16:00 Temperature Pulse Rate 98 84 86 Respiratory Rate 18 Blood Pressure Pulse Oximetry 96 Oxygen Delivery Nasal Cannula Oxygen Flow Rate 1 Fraction of Inspired Oxygen 12/10/22 16:00 12/10/22 18:00 12/10/22 20:00 Temperature 97.5 F L 97.9 F Pulse Rate 90 85 88 Respiratory Rate 20 16 Blood Pressure 122/63 120/88 Pulse Oximetry 96 96 Oxygen Delivery Oxygen Flow Rate Fraction of Inspired Oxygen 12/10/22 20:00 12/10/22 20:00 12/10/22 22:00 Temperature Pulse Rate 86 86 82 Respiratory Rate 16 Blood Pressure Pulse Oximetry 96 Oxygen Delivery Nasal Cannula Oxygen Flow Rate 2 Fraction of Inspired Oxygen 40 12/10/22 23:52 12/10/22 23:45 12/11/22 00:00 Temperature 97.7 F Pulse Rate 84 80 74 Respiratory Rate 18 27 H Blood Pressure 138/68 Pulse Oximetry 93 94 Oxygen Delivery BiPAP Oxygen Flow Rate Fraction of Inspired Oxygen 12/11/22 00:00 12/11/22 02:23 12/11/22 02:00 Temperature Pulse Rate 84 78 84 Respiratory Rate 18 Blood Pressure Pulse Oximetry 93 94 Oxygen Delivery BiPAP Oxygen Flow Rate Fraction of Inspired Oxygen 40 12/11/22 04:00 12/11/22 04:00 12/11/22 04:00 Temperature 97.8 F Pulse Rate 73 73 77 Respiratory Rate 18 16 Blood Pressure 153/84 H Pulse Oximetry 94 99 Oxygen Delivery Nasal Cannula Oxygen Flow Rate 2 Fraction of Inspired Oxygen 40 12/11/22 06:00 12/11/22 07:41 12/11/22 08:00 Temperature 97.1 F L Pu
--- NOTE | 2022-12-11 13:40 | PCSTNOTE ---
Please refer to the Modified Barium Swallow Evaluation in the EMR.
[2022-12-11] MEDS: ENOXAPARIN 80 MG/0.8 ML SYRINGE 70 MG SUB-Q (21:10)
[2022-12-12] VITALS (45 sets, daily range): BP systolic 122–151; BP diastolic 57–72; PULSE 63–106; RESP 15–20; TEMP 36.4–37.1; O2SAT 93–99
[2022-12-12] MEDS: ASPIRIN 81 MG ENTERIC TABLET PO (08:00)
[2022-12-12] MEDS: cloNIDine HCL 0.1 MG TABLET PO ×3 (08:00→17:30)
[2022-12-12] MEDS: EMPAGLIFLOZIN 10 MG TABLET PO (08:00)
[2022-12-12] MEDS: METOPROLOL SUCCINATE EXT REL 25 MG, METOPROLOL SUCCINATE EXT REL 50 MG 75 MG PO (08:32)
[2022-12-12] MEDS: ATORVASTATIN 40 MG TABLET 80 MG PO (08:32)
--- NOTE | 2022-12-12 10:51 | PM.DS ---
DS: Admitting Diagnosis Discharge Date December 12, 2022 Admitting Diagnosis Abdominal pain DS: Discharge Diagnosis Discharge Diagnosis (1) Choledocholithiasis: Code(s): K80.50 - Calculus of bile duct without cholangitis or cholecystitis without obstruction Status: Acute (2) Acute respiratory failure with hypoxia: Code(s): J96.01 - Acute respiratory failure with hypoxia Status: Acute (3) Aspiration pneumonia: Code(s): J69.0 - Pneumonitis due to inhalation of food and vomit Status: Acute (4) Hypertension with heart disease: Code(s): I11.9 - Hypertensive heart disease without heart failure Status: Acute DS: Summary Hospital Course Hospital Course: [facility] [address] [place] [id number] History & Physical Report Signed Patient: Sade Becerra MR#: [id number] : 1935 This is an 86-year-old female with past medical history significant for coronary artery disease, chronic kidney disease, dyslipidemia, hypertension.? Patient was brought to the emergency room for evaluation after brother came in to check on her and found her laying in bed covered in her own emesis.? Last time patient was seen her usual was 2 days prior to this.? In emergency room patient was found to have elevated troponins, patient is unable to give any history she is delirious, confused. Patient's CT of the abdomen reported pulmonary edema also showed a common bile duct diameter of 10 mm patient was seen by GI for common duct stone. Had MRCP done patient not a candidate for ERCP because the patient's risk. Medical management only patient was seen by Cardiology. The echo results were left ventricular ejection fraction 35% patient been switched to metoprolol 75 mg. started cipro 500 mg 7 days. Time Spent with Patient Time attestation: Total time spent providing and/or coordinating discharge services: Exam Narrative: GENERAL: Well appearing, well-nourished, non-toxic, in no acute distress. HEAD: Normocephalic, atraumatic. NECK: Supple. No adenopathy, no masses. RESPIRATORY: Airway patent, respirations nonlabored. Clear to auscultation bilaterally, no rales, rhonchi, wheezing. CARDIOVASCULAR: Regular rate and rhythm without murmurs, rubs, or gallops. Peripheral pulses 2+ and equal bilaterally. ABDOMINAL: Soft, nontender, nondistended, no hepatosplenomegaly. Normoactive BS. MUSCULOSKELETAL: no Epigastric and no hypochondrial tenderness SKIN: Warm, dry, normal color. No rashes. NEURO: A&O X3. Moves all extremities PSYCHIATRIC: Appropriate mood and affect. Normal interaction. DS: Data Data Completed and Pending Labs on day of discharge: Preliminary micro results at discharge 12/07/22 23:04 Blood Culture - Preliminary Blood 12/07/22 23:04 Blood Culture - Preliminary Blood Discharge Plan Discharge Consulting providers: Mu Miranda ; Cliff Mariano Discharging Clinician: Hank Beck Patient Disposition: SNF Activity: as tolerated Diet: diabetic Discharge Instructions: Continue PT OT. Follow-up with Cardiology and GI as an outpatient Stand Alone Forms: General Discharge Information Follow-up/Referrals: Antione Nance MD [Physician] - 2 Weeks Discharge Medications: New ciprofloxacin HCl [Cipro] 500 mg tablet 500 mg PO Q12H Qty: 14 0RF metoprolol tartrate 75 mg tablet 75 mg PO BID Qty: 60 0RF Continued lisinopril 30 mg tablet 30 mg PO DAILY Qty: 90 3RF aspirin [Adult Low Dose Aspirin] 81 mg tablet,delayed release (DR/EC) 81 mg PO DAILY clonidine HCl 0.1 mg tablet 0.1 mg PO TID simvastatin 20 mg tablet 20 mg PO DAILY Qty: 90 2RF furosemide 40 mg tablet 40 mg PO QAM Qty: 90 2RF potassium chloride [Klor-Con 10] 10 mEq tablet extended release 10 meq PO DAILY Qty: 90 2RF No Action metoprolol tartrate 25 mg tablet 25 mg PO BID mecl
--- NOTE | 2022-12-12 14:10 | WPDGIPROGNO ---
Progress Note: A&P Assessment and Plan (1) Choledocholithiasis: Code(s): K80.50 - Calculus of bile duct without cholangitis or cholecystitis without obstruction Status: Acute Assessment and Plan: reviewed mrcp and stone however liver enzymes normal and she is not having any abdominal pain and no more nausea tolerating diet and doing well records from 2019, erc because GS pancreatitis (required also drainage) and finally had cholecystectomy. patient already has sphincterotomy, no signs of biliary obstruction and given comorbidities and recent heart attack with severe pulmonary htn, recommend conservative treatment patient is leaving today to rehab (2) Acute respiratory failure with hypoxia: Code(s): J96.01 - Acute respiratory failure with hypoxia Status: Acute Assessment and Plan: improved, comfortable (3) Type 2 CO (myocardial infarction): Code(s): I21.A1 - Myocardial infarction type 2 Status: Acute Assessment and Plan: medical management per cardiology denies any chest pain (4) Acute on chronic kidney failure: Code(s): N17.9 - Acute kidney failure, unspecified; N18.9 - Chronic kidney disease, unspecified Status: Acute Assessment and Plan: improved Subjective Date/time seen: 12/12/22 14:10 Interval history: she is feeling better, no abdominal pain and has been tolerating diet she is going to rehab (still weak) Review of Systems Review of Systems: All systems reviewed & are unremarkable except as noted in HPI and below Exam Const: General: comfortable and no acute distress HENMT: Mouth: Yes moist mucous membranes Eyes: Sclera: sclerae normal Neck: Neck: supple Resp: Effort & Inspection: normal respiratory effort Auscultation: diminished lung sounds Cardio: Rate: regular rate Rhythm: regular rhythm GI: GI Palp: Yes Soft to palpation, No Tenderness to palpation present (GI) and No Guarding due to palpation present (GI) Auscultation: normal bowel sounds Skin: General skin exam: normal color Neuro: Speech: normal speech Motor exam (neuro): 5/5 motor strength present throughout Extrem: General: normal to inspection Psych: Affect: Anxious affect present Objective Data Vital Signs Vital Signs: Vital Signs - 24 hr 12/11/22 16:00 12/11/22 16:00 12/11/22 18:00 Temperature 97.8 F Pulse Rate 57 L 71 74 Respiratory Rate 18 Blood Pressure 128/66 Pulse Oximetry 95 Oxygen Delivery Oxygen Flow Rate Fraction of Inspired Oxygen 12/11/22 20:34 12/11/22 20:00 12/11/22 20:00 Temperature 97.4 F L Pulse Rate 70 70 70 Respiratory Rate 20 20 Blood Pressure 126/61 Pulse Oximetry 98 98 Oxygen Delivery Nasal Cannula Oxygen Flow Rate 2 Fraction of Inspired Oxygen 40 12/11/22 22:00 12/12/22 00:00 12/12/22 04:40 Temperature 97.5 F L Pulse Rate 72 84 65 Respiratory Rate 20 Blood Pressure 131/67 Pulse Oximetry 99 Oxygen Delivery Oxygen Flow Rate Fraction of Inspired Oxygen 12/12/22 02:00 12/12/22 04:00 12/12/22 06:00 Temperature Pulse Rate 74 70 68 Respiratory Rate Blood Pressure Pulse Oximetry Oxygen Delivery Oxygen Flow Rate Fraction of Inspired Oxygen 12/12/22 08:24 12/12/22 08:32 12/11/22 20:10 Temperature 97.6 F Pulse Rate 78 80 73 Respiratory Rate 15 Blood Pressure 151/72 H Pulse Oximetry 93 Oxygen Delivery Oxygen Flow Rate Fraction of Inspired Oxygen 12/11/22 20:20 12/11/22 20:30 12/11/22 20:45 Temperature Pulse Rate 73 68 94 Respiratory Rate Blood Pressure Pulse Oximetry Oxygen Delivery Oxygen Flow Rate Fraction of Inspired Oxygen 12/11/22 21:00 12/11/22 21:15 12/11/22 21:30 Temperature Pulse Rate 87 72 68 Respiratory Rate Blood Pressure Pulse Oximetry Oxygen Delivery Oxygen Flow Rate Fraction of Inspired Oxygen 12/11/22 21:45 12/11/22 22:00 12/11
--- NOTE | 2022-12-12 15:50 | PC.NURSE ---
On 12/12/22, the student, [Kori Dong], provided care and completed [facility] documentation on this patient. I have reviewed the student's documentation and agree with the findings.
--- NOTE | 2022-12-12 16:45 | PC.NURSE ---
This patient, Sade Becerra, was received from [facility] on 12/12/22 at 1824. Patient/family oriented to unit policies and routines
[2022-12-12] MEDS: ENOXAPARIN 80 MG/0.8 ML SYRINGE 70 MG SUB-Q (20:01)
[2022-12-13] VITALS (10 sets, daily range): BP systolic 123–149; BP diastolic 52–64; PULSE 57–78; RESP 16–24; TEMP 36.6–37; O2SAT 96–99
[2022-12-13] MEDS: EMPAGLIFLOZIN 10 MG TABLET PO (09:12)
[2022-12-13] MEDS: ASPIRIN 81 MG ENTERIC TABLET PO (09:12)
[2022-12-13] MEDS: ATORVASTATIN 40 MG TABLET 80 MG PO (09:12)
[2022-12-13] MEDS: cloNIDine HCL 0.1 MG TABLET PO ×3 (09:12→18:16)
[2022-12-13] MEDS: METOPROLOL SUCCINATE EXT REL 25 MG, METOPROLOL SUCCINATE EXT REL 50 MG 75 MG PO (09:13)
--- NOTE | 2022-12-13 15:23 | PM.IMPN ---
Progress Note: A&P Assessment and Plan (1) Aspiration pneumonia: Code(s): J69.0 - Pneumonitis due to inhalation of food and vomit Status: Acute (2) Acute respiratory failure with hypoxia: Code(s): J96.01 - Acute respiratory failure with hypoxia Status: Acute (3) Hypertension with heart disease: Code(s): I11.9 - Hypertensive heart disease without heart failure Status: Acute (4) Chronic kidney disease, stage 4 (severe): Code(s): N18.4 - Chronic kidney disease, stage 4 (severe) Status: Acute (5) Choledocholithiasis: Code(s): K80.50 - Calculus of bile duct without cholangitis or cholecystitis without obstruction Status: Acute Plan Patient was discharged yesterday but could not leave because of the custodial placement. Got a call from the social media coordinator that s she will have to wait till Thursday to get to the care home facility No further medical recommendations this point will continue monitor Time Spent With Patient Time: DVT prophylaxis. GI prophylaxis. All records reviewed Discussed plan of care with the nursing staff and with the patient in detail. Answered all questions and concerns from the patient. All labs have been reviewed. Code status updated dictation may have been done utilizing a voice recognition system. Attempts have been made to correct errors. However, there may be uncorrected grammatical, spelling, and recognition errors present. Subjective Date/time seen: 12/13/22 15:23 Exam Narrative: GENERAL: Well appearing, well-nourished, non-toxic, in no acute distress. HEAD: Normocephalic, atraumatic. NECK: Supple. No adenopathy, no masses. RESPIRATORY: Airway patent, respirations nonlabored. Clear to auscultation bilaterally, no rales, rhonchi, wheezing. CARDIOVASCULAR: Regular rate and rhythm without murmurs, rubs, or gallops. Peripheral pulses 2+ and equal bilaterally. ABDOMINAL: Soft, nontender, nondistended, no hepatosplenomegaly. Normoactive BS. MUSCULOSKELETAL: no Epigastric and no hypochondrial tenderness SKIN: Warm, dry, normal color. No rashes. NEURO: A&O X3. Moves all extremities PSYCHIATRIC: Appropriate mood and affect. Normal interaction. Objective Data Vital Signs Vital Signs: Vital Signs - 24 hr 12/12/22 15:58 12/12/22 16:46 12/12/22 20:00 Temperature 36.5 C 36.4 C L Pulse Rate 70 73 Respiratory Rate 18 18 Blood Pressure 122/57 L 150/60 H Pulse Oximetry 97 96 96 Oxygen Delivery Room Air 12/12/22 20:00 12/12/22 20:55 12/13/22 00:00 Temperature 37.1 C Pulse Rate 78 72 74 Respiratory Rate 20 Blood Pressure 135/58 L Pulse Oximetry 98 Oxygen Delivery 12/13/22 04:00 12/13/22 06:43 12/13/22 09:13 Temperature 36.6 C Pulse Rate 67 73 78 Respiratory Rate 24 H Blood Pressure 149/64 H Pulse Oximetry 99 Oxygen Delivery 12/13/22 08:30 12/13/22 08:30 Temperature Pulse Rate 78 Respiratory Rate Blood Pressure Pulse Oximetry Oxygen Delivery Room Air Intake/Output Intake/Output: Intake & Output 12/10/22 12/11/22 12/12/22 12/13/22 23:59 23:59 23:59 23:59 Intake Total 2290 2290 1710 290 Output Total 900 1700 1250 Balance 1390 590 460 290 Meds/Results Medications: Active Medications Generic Name Dose Route Start Last Admin Trade Name Freq PRN Reason Stop Dose Admin Acetaminophen 650 mg 12/10/22 00:07 12/10/22 20:41 Acetaminophen 325 Mg Tablet PO 650 mg Q6H PRN Administration Mild Pain (1-3) or Fever Aspirin 81 mg 12/08/22 09:00 12/13/22 09:12 Aspirin 81 Mg Enteric Tablet PO 81 mg DAILY BIANCA Administration Atorvastatin Calcium 80 mg 12/10/22 09:00 12/13/22 09:12 Atorvastatin 40 Mg Tablet PO 80 mg DAILY BIANCA Administration Clonidine HCl 0.1 mg 12/08/22 09:00 12/13/22 12:27 Clonidine Hcl 0.1 Mg Tablet PO 0.1 mg TID BIANCA Administration Empagliflozin 10 mg 12/10/22 09:00 12/13/22 09:12
[2022-12-13] MEDS: ENOXAPARIN 80 MG/0.8 ML SYRINGE 70 MG SUB-Q (20:39)
[2022-12-14] VITALS (12 sets, daily range): BP systolic 129–186; BP diastolic 53–84; PULSE 60–89; RESP 16–20; TEMP 36.1–37.4; O2SAT 95–100
[2022-12-14] MEDS: EMPAGLIFLOZIN 10 MG TABLET PO (08:37)
[2022-12-14] MEDS: ATORVASTATIN 40 MG TABLET 80 MG PO (08:37)
[2022-12-14] MEDS: ASPIRIN 81 MG ENTERIC TABLET PO (08:37)
[2022-12-14] MEDS: METOPROLOL SUCCINATE EXT REL 25 MG, METOPROLOL SUCCINATE EXT REL 50 MG 75 MG PO (08:38)
[2022-12-14] MEDS: cloNIDine HCL 0.1 MG TABLET PO ×3 (08:39→17:12)
--- NOTE | 2022-12-14 10:08 | PM.IMPN ---
Progress Note: A&P Assessment and Plan (1) Aspiration pneumonia: Code(s): J69.0 - Pneumonitis due to inhalation of food and vomit Status: Acute (2) Acute respiratory failure with hypoxia: Code(s): J96.01 - Acute respiratory failure with hypoxia Status: Acute (3) Hypertension with heart disease: Code(s): I11.9 - Hypertensive heart disease without heart failure Status: Acute (4) Chronic kidney disease, stage 4 (severe): Code(s): N18.4 - Chronic kidney disease, stage 4 (severe) Status: Acute (5) Choledocholithiasis: Code(s): K80.50 - Calculus of bile duct without cholangitis or cholecystitis without obstruction Status: Acute Plan Patient was discharged yesterday but could not leave because of the long-term placement. Got a call from the social worker health services that s she will have to wait till Thursday to get to the [facility] facility No further medical recommendations this point will continue monitor Time Spent With Patient Time: DVT prophylaxis. GI prophylaxis. All records reviewed Discussed plan of care with the nursing staff and with the patient in detail. Answered all questions and concerns from the patient. All labs have been reviewed. Code status updated dictation may have been done utilizing a voice recognition system. Attempts have been made to correct errors. However, there may be uncorrected grammatical, spelling, and recognition errors present. Subjective Date/time seen: 12/14/22 10:08 Exam Narrative: GENERAL: Well appearing, well-nourished, non-toxic, in no acute distress. HEAD: Normocephalic, atraumatic. NECK: Supple. No adenopathy, no masses. RESPIRATORY: Airway patent, respirations nonlabored. Clear to auscultation bilaterally, no rales, rhonchi, wheezing. CARDIOVASCULAR: Regular rate and rhythm without murmurs, rubs, or gallops. Peripheral pulses 2+ and equal bilaterally. ABDOMINAL: Soft, nontender, nondistended, no hepatosplenomegaly. Normoactive BS. MUSCULOSKELETAL: no Epigastric and no hypochondrial tenderness SKIN: Warm, dry, normal color. No rashes. NEURO: A&O X3. Moves all extremities PSYCHIATRIC: Appropriate mood and affect. Normal interaction. Objective Data Vital Signs Vital Signs: Vital Signs - 24 hr 12/13/22 14:00 12/13/22 12:00 12/13/22 16:00 Temperature 37.0 C Pulse Rate 67 66 60 Respiratory Rate 20 Blood Pressure 130/57 L Pulse Oximetry 99 12/13/22 16:00 12/13/22 21:04 12/13/22 20:00 Temperature 36.8 C 36.8 C Pulse Rate 73 57 L 57 L Respiratory Rate 22 H 16 Blood Pressure 139/59 L 123/52 L Pulse Oximetry 98 96 12/14/22 00:00 12/14/22 04:00 12/14/22 06:00 Temperature 37.4 C Pulse Rate 64 61 64 Respiratory Rate 16 Blood Pressure 129/73 Pulse Oximetry 99 12/14/22 08:38 12/14/22 09:21 12/14/22 08:00 Temperature 36.1 C L Pulse Rate 89 88 60 Respiratory Rate 16 Blood Pressure 186/84 H Pulse Oximetry 98 Intake/Output Intake/Output: Intake & Output 12/11/22 12/12/22 12/13/22 12/14/22 23:59 23:59 23:59 23:59 Intake Total 2290 1710 1380 290 Output Total 1700 1250 Balance 191 617 6441 290 Meds/Results Medications: Active Medications Generic Name Dose Route Start Last Admin Trade Name Freq PRN Reason Stop Dose Admin Acetaminophen 650 mg 12/10/22 00:07 12/10/22 20:41 Acetaminophen 325 Mg Tablet PO 650 mg Q6H PRN Administration Mild Pain (1-3) or Fever Aspirin 81 mg 12/08/22 09:00 12/14/22 08:37 Aspirin 81 Mg Enteric Tablet PO 81 mg DAILY BIANCA Administration Atorvastatin Calcium 80 mg 12/10/22 09:00 12/14/22 08:37 Atorvastatin 40 Mg Tablet PO 80 mg DAILY BIANCA Administration Clonidine HCl 0.1 mg 12/08/22 09:00 12/14/22 08:39 Clonidine Hcl 0.1 Mg Tablet PO 0.1 mg TID BIANCA Administration Empagliflozin 10 mg 12/10/22 09:00 12/14/22 08:37 Empagliflozin 10 Mg Tablet PO 10 mg DAILY BIANCA
[2022-12-14] MEDS: ENOXAPARIN 80 MG/0.8 ML SYRINGE 70 MG SUB-Q (20:22)
[2022-12-15] VITALS (8 sets, daily range): BP systolic 138–176; BP diastolic 56–60; PULSE 65–82; RESP 16–20; TEMP 36.4–36.5; O2SAT 97–98
[2022-12-15] MEDS: METOPROLOL SUCCINATE EXT REL 25 MG, METOPROLOL SUCCINATE EXT REL 50 MG 75 MG PO (08:20)
[2022-12-15] MEDS: ASPIRIN 81 MG ENTERIC TABLET PO (08:20)
[2022-12-15] MEDS: EMPAGLIFLOZIN 10 MG TABLET PO (08:20)
[2022-12-15] MEDS: ATORVASTATIN 40 MG TABLET 80 MG PO (08:21)
[2022-12-15] MEDS: cloNIDine HCL 0.1 MG TABLET PO ×2 (08:24→12:27)
--- NOTE | 2022-12-15 12:25 | PM.DS ---
DS: Admitting Diagnosis Discharge Date 12/15/2022 Admitting Diagnosis AMS and vomitus DS: Discharge Diagnosis Discharge Diagnosis (1) Aspiration pneumonia: Code(s): J69.0 - Pneumonitis due to inhalation of food and vomit Status: Acute Assessment and Plan: This is an 86-year-old female with past medical history significant for coronary artery disease, chronic kidney disease, dyslipidemia, hypertension.? Patient was brought to the emergency room for evaluation after brother came in to check on her and found her laying in bed covered in her own emesis.? Last time patient was seen her usual was 2 days prior to this.? In emergency room patient was found to have elevated troponins, patient is unable to give any history she is delirious, confused.? She was brought to the hospital after being found on the floor in her home apparently being down on the floor for a while as she was covered in her own vomitus (2) Acute respiratory failure with hypoxia: Code(s): J96.01 - Acute respiratory failure with hypoxia Status: Acute Assessment and Plan: Pt much improved (3) Hypertension with heart disease: Code(s): I11.9 - Hypertensive heart disease without heart failure Status: Acute Assessment and Plan: Medical management only patient was seen by Cardiology.? The echo results were left ventricular ejection fraction 35% patient. (4) Chronic kidney disease, stage 4 (severe): Code(s): N18.4 - Chronic kidney disease, stage 4 (severe) Status: Acute (5) Choledocholithiasis: Code(s): K80.50 - Calculus of bile duct without cholangitis or cholecystitis without obstruction Status: Acute Assessment and Plan: Preliminary workup was significant for CT of abdomen and pelvis were was reported as: There is prominent smooth septal line thickening and patchy groundglass opacities in the bilateral lower lung zones consistent with mild pulmonary edema. There are also small bilateral posterior layering pleural effusions, right greater than left. Heart size is normal. Atherosclerotic coronary artery calcifications. No pericardial effusion. Common bile duct is dilated to 10 mm which may be related to prior cholecystectomy although there appears be a meniscus sign at the distal duct suggesting possible distal obstructing gallstone. There is minimal intrahepatic biliary ductal dilation. Common bile duct is also dilated to 6 mm at the body of the pancreas. Pancreas appears otherwise unremarkable with no peripancreatic inflammatory stranding to suggest acute pancreatitis. Spleen, bilateral adrenal glands and left kidney are normal. GI reviewed mrcp and stone however liver enzymes normal and she is not having any abdominal pain and no more nausea tolerating diet and doing well records from 2019, erc because GS pancreatitis (required also drainage) and finally had cholecystectomy. patient already has sphincterotomy, no signs of biliary obstruction and given comorbidities and recent heart attack with severe pulmonary htn, recommend conservative treatment patient is leaving today to rehab (6) Type 2 GA (myocardial infarction): Code(s): I21.A1 - Myocardial infarction type 2 Status: Acute Assessment and Plan: Troponin levels are significantly elevated.? Her electrocardiogram appears to show anterior ST elevation on presentation when she came to the emergency room but she is not reporting any chest pain and there are no previous ECGs available in our chart for comparison purposes. Seen by my partner yesterday and thought to be a type 2 infarction, and recommended medical management. Did not appear to be a candidate for cath. 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 It was reported that an LV thrombus cannot be excluded. Trace MR, mild TR, severe pulmonary hypertension. There was concern about a 0.8cm x 1.5cm echodensity in the
[2022-12-15 13:02] LABS: EDCOVIDSCREEN Negative (Negative)
== END 2022-12-15 15:05 | DRG 177 ==
LOC: ANHED 20:07 → ANHIMU 22:25 → ANH2MED 12-12 16:09
PROVIDERS: Internal Medicine; Admitting Provider Internal Medicine; Emergency Provider Emergency Medicine; PCP Family Medicine; Visit Provider Family Medicine
DX: J69.0 Pneumonitis due to inhalation of food and vomit (principal); G92.8 Other toxic encephalopathy; J96.01 Acute respiratory failure with hypoxia; I21.A1 Myocardial infarction type 2; N18.4 Chronic kidney disease, stage 4 (severe); I13.10 Hypertensive heart and chronic kidney disease without heart failure, with stage 1 through stage 4 chronic kidney disease, or unspecified chronic kidney disease; I50.9 Heart failure, unspecified; K80.50 Calculus of bile duct without cholangitis or cholecystitis without obstruction; I25.10 Atherosclerotic heart disease of native coronary artery without angina pectoris; E78.5 Hyperlipidemia, unspecified; Z20.822 Contact with and (suspected) exposure to COVID-19; M47.896 Other spondylosis, lumbar region; D72.829 Elevated white blood cell count, unspecified; Z79.82 Long term (current) use of aspirin; R29.6 Repeated falls; Z90.49 Acquired absence of other specified parts of digestive tract; Z90.710 Acquired absence of both cervix and uterus; Z90.722 Acquired absence of ovaries, bilateral; Z95.5 Presence of coronary angioplasty implant and graft
CPT/HCPCS: 36415; 36600; 70450; 71045; 74177; 74183; 76376; 80048; 80053; 80061; 80076; 81001; 82140; 82550; 82805; 83605; 83690; 83735; 83880; 84484; 85025; 85027; 85055; 85610; 85730; 87040; 87426; 87637; 92610; 92611; 93005; 94002; 94003; 96360; 96361; 97110; 97116; 97161; 97166; 97530; 97535; 99285; A9270; A9577; C8929; C9803; J1650; J1940; J1956; J2405; J3475; J3480; J7030; J7040; Q9957; Q9967

== ENCOUNTER 2023-01-14 11:29 | Outpatient (RCR) | payer MEDICARE, SELFPAY | END 2023-01-14 11:32 | disposition home or self-care (01) | LOC: ANHPT 11:29 | PROVIDERS: PCP Family Medicine; Visit Provider Family Medicine | DX: R26.89 Other abnormalities of gait and mobility (principal) | CPT/HCPCS: 99199 ==

== ENCOUNTER 2023-04-16 23:55 | Inpatient (IN) | payer MEDICARE, SELFPAY ==
--- NOTE | ~2023-04-16 | XR_ITS ---
EXAMINATION: XR barium swallow modified DATE: 04/18/2023 10:28 INDICATION: Aspiration on ice water. TECHNIQUE: The patient was given barium-containing material of multiple consistencies to swallow by t andres speech pathologist while I performed fluoroscopy. Fluoroscopy exposure time was 0.9 minutes. The n umber of fluoroscopy images saved to the PACS was 1. Dose-area product was 0.692 Gy-cm^2. FINDINGS: The oral stage of the swallow is normal. There is pharyngeal wall residue. The cervical/esophageal st age of the swallow is normal. IMPRESSION: 1. No laryngeal penetration or aspiration. 2. Please refer to the speech therapy report for recommendations. Reviewed, dictated and finalized at location A.
--- NOTE | ~2023-04-16 | CT_ITS ---
EXAMINATION: CT brain wo con INDICATION: Weakness and vomiting COMPARISON: 12/07/2022 TECHNIQUE: Standard unenhanced head CT. The dose-length product (DLP) was 605.33 mGy-cm. The mA was a djusted according to patient size. Iterative reconstruction technique was employed. FINDINGS: There is no acute intraparenchymal hemorrhage. No evidence of mass lesion. No evidence of a cute infarction. There is mild periventricular and subcortical hypodensity probably related to small vessel ischemic disease. There is mild prominence of the sulci and ventricles related to cerebral atr ophy. Intracranial calcified cerebral atherosclerosis is noted. There are no extra-axial collections. There is no mass effect or midline shift. Changes in the globes are likely from ocular lens surgery. There is mild mucosal thickening of the paranasal sinuses. IMPRESSION: 1. No acute intracranial abnormality. 2. Age related findings. Reviewed, dictated and finalized at location A.
--- NOTE | ~2023-04-16 | XR_ITS ---
EXAMINATION: XR knee LT 3V DATE: 04/17/2023 00:57 INDICATION: Weakness, fall, inability to ambulate TECHNIQUE: Three views of the left knee were obtained. COMPARISON: None. FINDINGS: Alignment is normal. No fracture or osteochondral lesion. There is mild tricompartmental os teoarthritis characterized by tiny marginal osteophytes. No joint effusion/synovitis. Calcified athe rosclerosis is noted. IMPRESSION: 1. No acute osseous abnormality. Reviewed, dictated and finalized at location A.
--- NOTE | ~2023-04-16 | XR_ITS ---
EXAMINATION: XR knee RT 3V DATE: 04/17/2023 00:57 INDICATION: Fall, weakness, inability to ambulate TECHNIQUE: Three views of the right knee were obtained. COMPARISON: None. FINDINGS: Alignment is normal. No fracture or osteochondral lesion. Joint spaces are normal with no e rosions. No joint effusion/synovitis. Calcified atherosclerosis is noted. IMPRESSION: 1. No acute osseous abnormality. Reviewed, dictated and finalized at location A.
--- NOTE | ~2023-04-16 | XR_ITS ---
EXAMINATION: XR chest 1V INDICATION: Weakness and fall TECHNIQUE: AP view of the chest is obtained. COMPARISON: 12/07/2022 FINDINGS: There are diffuse interstitial opacities throughout the lungs. No pleural effusion or pneum othorax. The lungs are free of focal airspace opacities. The cardiomediastinal silhouette is normal. IMPRESSION: 1. Moderate pulmonary edema. Reviewed, dictated and finalized at location A.
[2023-04-16 23:55] VITALS: BP 143/83; PULSE 88; RESP 20; TEMP 36.5; O2SAT 95
[2023-04-17] VITALS (27 sets, daily range): BP systolic 99–155; BP diastolic 53–83; PULSE 65–115; RESP 14–42; TEMP 36.2–36.8; O2SAT 85–100; BMI 27.8
[2023-04-17 00:13] LABS: Basophils Absolute Auto 0.1 K/mm3 (0.0-0.1); Basophils Percent Auto 0.4 % (0.2-1.2); Eosinophils Absolute Auto 0.1 K/mm3 (0-0.3); Eosinophils Percent Auto 0.5 % (0-4.4); Hematocrit 39.1 % (37.0-47.0); Hemoglobin 12.6 g/dL (12.0-15.0); Immature Granulocyte Absolute 0.21 K/mm3 (0.00-0.031); Immature Granulocyte Percent A 1.4 % (0-0.5); Lymphocytes Absolute Auto 1.77 K/mm3 (0.9-3.2); Lymphocytes Percent Auto 11.6 % (18.3-44.2); Mean Corpuscular HGB Conc 32.2 g/dl (32-36); Mean Corpuscular Hemoglobin 30.4 pg (26-34); Mean Corpuscular Volume 94.2 fl (80-100); Mean Platelet Volume 10.7 fl (7.4-10.4); Monocytes Absolute Auto 0.7 K/mm3 (0.1-0.6); Monocytes Percent Auto 4.8 % (2.6-8.5); Neutrophils Absolute Auto 12.4 K/mm3 (1.3-6.7); Neutrophils Percent Auto 81.3 % (45.5-73.1); Platelet Count Result 217 k/mm3 (150-375); Red Blood Count 4.15 M/mm3 (4.2-5.4); White Blood Count 15.3 K/mm3 (4.5-10.0)
--- NOTE | 2023-04-17 00:13 | ECG_ITS ---
Measurements Intervals [place] Rate: 85 P: 41 SC: 240 QRS: 21 QRSD: 108 T: 67 QT: 352 QTc: 420 Interpretive Statements SINUS RHYTHM WITH FIRST DEGREE AV BLOCK DELAYED PRECORDIAL R/S TRANSITION BORDERLINE ECG COMPARED TO ECG 12/08/2022 09:23:53 SINUS RHYTHM NOW PRESENT FIRST DEGREE AV BLOCK NOW PRESENT Electronically Signed On 04-17-2023 6:37:26 CDT by Silas Sears D.O.
--- NOTE | 2023-04-17 00:20 | ED.GENADULT ---
HPI - General Adult General Chief complaint: Fall Stated complaint: GLF History of Present Illness HPI narrative: This is an 87-year-old female presenting ED after a fall at home. Patient was taking out her garbage and had on an oversized set of slippers. Slippers tripped her and she fell forward onto her knees. She was unable to get back up afterwards and crawled back to the house and called EMS. Other than some knee pain the patient feels well and has no complaints. She did not strike her head, lose consciousness. Related Data Home Medications Medication Instructions Recorded Confirmed aspirin 81 mg tablet,delayed 81 mg PO DAILY 01/25/20 02/16/23 release (Adult Low Dose Aspirin) Allergies Allergy/AdvReac Type Severity Reaction Status Date / Time gabapentin Allergy Mild Rash Verified 04/17/23 00:28 Penicillins Allergy Unknown Unknown Verified 04/17/23 00:28 [facility] Past Medical History Medical History Acute on chronic kidney failure CAD (coronary artery disease) Choledocholithiasis Chronic kidney disease, stage 4 (severe) HLD (hyperlipidemia) Hy ht/kd NOS I-IV w/o hf Hypertension with heart disease Lumbar spondylosis Wellness examination Surgical History Surgical History History of cholecystectomy History of hysterectomy with bilateral oophorectomy History of lumbar laminectomy for spinal cord decompression S/P coronary artery stent placement Social History Social History Smoking status: Never smoker Second hand tobacco smoke exposure: No Alcohol intake: never Substance use: never Substance use type: does not use Lack of Transportation: No Lack of Food: Never True Current Housing: I Have Housing Concerned About Future Housing: No Difficulty Paying Gas/Electric Bills: No Difficulty Paying for Meds: No Currently Unemployed: No Education: High School Diploma/GED Difficulty w/ Childcare or Family Care: No Living arrangements: alone Occupation/Education: retired Gender identity (if verbalized by the patient): Female Sexual Orientation (if Verbalized by the Patient): Straight or Heterosexual Spiritual care concerns: No Exam Narrative: APPEARANCE: No apparent distress., A&O x4 Head: atraumatic. EYES: EOMI, NOSE: Atraumatic NECK: Trachea midline RESPIRATORY: No increased rate of breathing clear to auscultation CARDIOVASCULAR: RRR, no peripheral edema ABDOMINAL: Non-distended soft no guarding rebound MUSCULOSKELETAl: minor abrasions over her knees. No pain with active and passive range of motion. Neurovascularly intact. NEURO: Alert. Moving 4/4 extremities SKIN:: Warm, dry. Normal color PSYCHIATRIC: Normal affect Course Vital Signs Vital signs: Vital Signs Temperature 97.7 F 04/16/23 23:55 Pulse Rate 88 04/16/23 23:55 Respiratory Rate 20 04/16/23 23:55 Blood Pressure 143/83 H 04/16/23 23:55 Pulse Oximetry 95 04/16/23 23:55 Oxygen Delivery Room Air 04/16/23 23:55 Temperature 97.7 F 04/16/23 23:55 Pulse Rate 89 04/17/23 00:02 Respiratory Rate 14 04/17/23 00:02 Blood Pressure 155/75 H 04/17/23 00:01 Pulse Oximetry 94 04/17/23 00:02 Oxygen Delivery Room Air 04/16/23 23:55 Medical Decision Making [facility] Narrative Medical decision making narrative: -Presentation: 87-year-old female presenting with mechanical fall at home. Initially basic lab work and x-rays of her chest knees had been obtained. When the patient was leg backwards to get the x-ray of her knees she vomited and aspirated. She then required supplemental oxygen. -DDX includes but is not limited to: Aspiration pneumonitis, dehydration, UTI, kidney disease -Co-morbidities complicating care: advanced age, chronic kidney disease, history of aspiration -Social determinants of he
[2023-04-17] MEDS: SODIUM CHLORIDE 0.9% IV 1,000 ML 999 ML IV CONT (00:21)
[2023-04-17] MEDS: ONDANSETRON INJ 4 MG/2 ML VIAL 8 MG IV PUSH (00:25)
[2023-04-17 00:36] LABS: Alanine Aminotransferase 24 U/L (6-35); Albumin Level 4.8 g/dL (3.5-5.1); Alkaline Phosphatase 129 U/L (38-126); Anion Gap 8 mmol/L (8-16); Aspartate Amino Transferase 43 U/L (14-36); Bilirubin,Total 0.5 mg/dL (0.2-1.3); Blood Urea Nitrogen 34 mg/dL (7-17); Calcium 9.7 mg/dL (8.4-10.2); Carbon Dioxide 28 mmol/L (22-30); Chloride 98 mmol/L (98-107); Estimated CRCL calculation 20 ml/min; Estimated Glomerular Filt Rate 28; Glucose 124 mg/dL (65-110); Potassium 5.1 mmol/L (3.4-5.0); Sodium 134 mmol/L (137-145)
[2023-04-17 00:41] LABS: Lactic Acid Reflex 1.6 mmol/L (0.7-2.0)
[2023-04-17 00:42] LABS: Lipase 89 U/L (23-300); Magnesium 1.9 mg/dL (1.6-2.3)
[2023-04-17] MEDS: PROCHLORPERAZINE EDISYLATE 10 MG/2 ML VIAL IV PUSH (01:14)
--- NOTE | 2023-04-17 01:16 | PC.NURSE ---
Daycare Teacher was at nurses station when audible vomiting coming from patient's room. Daycare Teacher went to patient's bedside and found patient vomiting while being sat up straight by registered respiratory technician. Per tech patient reported she felt short of breath prior to vomiting but after vomiting patient had audible wheezing, increased work of breathing, and decreased oxygen saturations down to 73% on room air. Daycare Teacher placed patient on 3L of oxygen via nasal cannula for hypoxia. Daycare Teacher informed Dr. Borja that patient potential aspirated while lying down and vomiting for radiology. Dr. Borja to bedside to evaluate patient.
[2023-04-17 02:11] LABS: Potassium 4.3 mmol/L (3.4-5.0)
[2023-04-17 02:40] LABS: Lactic Acid Reflex 2.6 mmol/L (0.7-2.0)
[2023-04-17 04:16] LABS: Appearance Urine Clear (Clear); Bacteria Urine None Seen /hpf; Bilirubin Urine Negative (Negative); Blood Urine 1+ (Negative); Color Urine Yellow (Yellow); Glucose Urine UA Negative (Negative); Ketones Urine Negative (Negative); Leukocyte Esterase Ur 2+ LEU/UL (Negative); Nitrate Urine Negative (Negative); Non Pathogenic Casts 0-2; Protein Urine Negative (Negative); RBC Urine 0-2 /hpf (0-2); Specific Grav Ur 1.014 (1.001-1.035); Squamous Epithelial Cell Urine None seen /hpf (Few); Urobilinogen Urine 0.2 mg/dL (<2.0)
[2023-04-17] MEDS: metroNIDAZOLE 500 MG/ISO 100ML 500 MG/100 ML BAG 100 MG IVPB ×3 (04:36→21:14)
[2023-04-17 04:43] LABS: Add Urine Microscopic? YES
--- NOTE | 2023-04-17 04:47 | ADMGEN ---
This patient, Sade Becerra, was admitted to [facility] Surg Room 332-02. Patient/family oriented to hospital policies and general routines including ID bracelet, bed and alarms, visiting hours, pain management, procedures, bathroom and other care routines, personal items, smoking policy, room service/diet, and visiting hours. Information on how to activate the Rapid Response Team has been discussed. Patient/Family are encouraged to report perceived risks to care and to ask questions if they do not understand what they are told or what they should do.
[2023-04-17 05:28] LABS: Reflex Lactic Acid Yes or No Add Lactic
--- NOTE | 2023-04-17 05:31 | PM.IMHP ---
H&P: HPI History of Present Illness Date/Time: 04/17/23 05:31 Chief Complaint: Fall Narrative: 87-year-old female with a past medical history of CHF, essential hypertension, anxiety and prior aspiration pneumonia who presented to the ER via EMS from home after she had a fall. She reports that she went outside to take her trash out and was wearing her slippers. Her slippers were too big for her feet and she lost her slipper and fell. She states any time she fall she has trouble getting up off the ground. In fact that is how she ended up hospitalized in November with aspiration pneumonia was that she fell and could not get herself up off the floor and ended up aspirating while lying down. In the ER the patient was sent down for a chest x-ray and x-rays of her knees as she was complaining of bilateral knee pain. When the the pharmacy order entry technician later back to position her for the x-rays the patient vomited in and aspirated. After she aspirated she developed acute hypoxia with oxygen saturations in the 70s. The patient's x-ray prior to her event of aspiration was within normal limits. Her oxygenation improved on 3 L nasal cannula. The patient reports that she had not been having any ill symptoms prior to her fall. She stated that she may have been a little bit nauseated just prior to her fall or the nausea may have occurred after she had already fallen. She denies having hit her head or having any loss of consciousness. She denies any cough, congestion or fevers. She reports that she feels chronically chilled. She denies any dysuria or changes in urinary frequency. She denies any diarrhea or changes in bowel habits. The patient's initial lactic acid prior to her aspiration event was normal at 1.6 her repeat lactic acid went up to 2.6. Patient did have some modest leukocytosis and her creatinine was near baseline. She denies any recent ill contacts. The patient does report does generalized weakness and states that she cannot stand up for orthostatic blood pressures. However patient does states the weakness is unchanged from baseline. Review of Systems Review of Systems: 12 systems were reviewed with pertinent positives and negatives per HPI. Except as documented in the HPI, all other systems were reviewed and are negative. [facility] Past Medical History Medical History (Updated 04/17/23 @ 06:07 by Tana Gaming DO) CAD (coronary artery disease) Choledocholithiasis Chronic kidney disease, stage 4 (severe) HLD (hyperlipidemia) Hypertension with heart disease Lumbar spondylosis Surgical History Surgical History (Updated 04/17/23 @ 05:43 by Tana Gaming DO) History of cholecystectomy History of hysterectomy with bilateral oophorectomy Due to endometriosis History of lumbar laminectomy for spinal cord decompression S/P coronary artery stent placement Status post cataract extraction of both eyes with insertion of intraocular lens Family History Family History (Updated 04/17/23 @ 05:44 by Tana Gaming DO) Sibling Age older than 80 years Social History Social History (Updated 04/17/23 @ 05:47 by Tana Gaming DO) Social History: Code status: Full code (however, she states that she would not want to be continued on long-term support if there was no hope.) Surrogate decision maker: Dannie Weston (brother) Smoking status: Never smoker Second hand tobacco smoke exposure: No Alcohol intake: never Substance use: never Substance use type: does not use Lack of Transportation: No Lack of Food: Never True Current Housing: I Have Housing Concerned About Future Housing: No Difficulty Paying Gas/Electric Bills: No Difficulty Paying for Meds: No Currently Unemployed: No Education: High School Diploma/GED Difficulty w/ Childcare or Family Care: No Living arrangements: alone Additional living arrangements comments: She has been since approximately 2014. She lives alone. She hall
[2023-04-17 06:21] LABS: Basophils Absolute Auto 0.1 K/mm3 (0.0-0.1); Basophils Percent Auto 0.3 % (0.2-1.2); Eosinophils Absolute Auto 0.1 K/mm3 (0-0.3); Eosinophils Percent Auto 0.6 % (0-4.4); Hematocrit 40.6 % (37.0-47.0); Hemoglobin 13.2 g/dL (12.0-15.0); Immature Granulocyte Absolute 0.05 K/mm3 (0.00-0.031); Immature Granulocyte Percent A 0.3 % (0-0.5); Lymphocytes Absolute Auto 1.61 K/mm3 (0.9-3.2); Lymphocytes Percent Auto 10.7 % (18.3-44.2); Mean Corpuscular HGB Conc 32.5 g/dl (32-36); Mean Corpuscular Hemoglobin 30.4 pg (26-34); Mean Corpuscular Volume 93.5 fl (80-100); Monocytes Absolute Auto 0.8 K/mm3 (0.1-0.6); Neutrophils Absolute Auto 12.6 K/mm3 (1.3-6.7); Neutrophils Percent Auto 83.1 % (45.5-73.1); Platelet Count Result 225 k/mm3 (150-375); Red Blood Count 4.34 M/mm3 (4.2-5.4); Red Cell Distribution Width 13.3 % (11.5-14.5); White Blood Count 15.1 K/mm3 (4.5-10.0)
[2023-04-17 06:27] LABS: Anion Gap 5 mmol/L (8-16); Blood Urea Nitrogen 30 mg/dL (7-17); Calcium 8.9 mg/dL (8.4-10.2); Carbon Dioxide 28 mmol/L (22-30); Chloride 102 mmol/L (98-107); Estimated CRCL calculation 21 ml/min; Estimated Glomerular Filt Rate 33; Glucose 140 mg/dL (65-110); Sodium 135 mmol/L (137-145)
[2023-04-17 06:29] LABS: Lactic Acid 1.3 mmol/L (0.7-2.0)
[2023-04-17 07:15] LABS: Lactic Acid Reflex 1.7 mmol/L (0.7-2.0)
[2023-04-17] MEDS: FUROSEMIDE 40 MG TABLET PO (08:26)
[2023-04-17] MEDS: ENOXAPARIN 30 MG/0.3 ML SYRINGE SUB-Q (08:26)
[2023-04-17] MEDS: cloNIDine HCL 0.1 MG TABLET PO ×3 (08:27→16:57)
[2023-04-17] MEDS: METOPROLOL TARTRATE 25 MG TABLET PO ×2 (08:27→21:12)
[2023-04-17] MEDS: chlordiazePOXIDE (*CRX) 10 MG CAPSULE PO (08:27)
--- NOTE | 2023-04-17 16:03 | PCSTNOTE ---
Please refer to the Bedside Swallow Evaluation in the EMR. Please note, silent aspiration cannot be ruled out at bedside.
--- NOTE | 2023-04-17 16:14 | PCPTNOTE ---
Addendum entered by Marzena Shearer, PT 04/17/23 16:14: [Lili Sol] Original Note: On 04/17/23, the student, [ ], provided care and completed [employer] documentation on this patient. I have reviewed the student's documentation and agree with the findings.
[2023-04-17] MEDS: lisinopriL 20 MG TABLET PO (21:12)
[2023-04-17] MEDS: ASPIRIN 81 MG ENTERIC TABLET PO (21:12)
[2023-04-18] VITALS (7 sets, daily range): BP systolic 160; BP diastolic 54; PULSE 60–84; RESP 20; TEMP 36.5; O2SAT 96–100
[2023-04-18] MEDS: metroNIDAZOLE 500 MG/ISO 100ML 500 MG/100 ML BAG 100 MG IVPB (06:21)
--- NOTE | 2023-04-18 06:26 | PC.NURSE ---
Per patients repeated request, patient asks that a note be written stating that come hell or high water patient will be discharged today (04/18/23) as she has a thursday that she will not be missing for any reason. Patient encouraged to speak to the doctor regarding discharge as promotion writer has no control regarding this.
[2023-04-18] MEDS: chlordiazePOXIDE (*CRX) 10 MG CAPSULE PO (08:10)
[2023-04-18] MEDS: METOPROLOL TARTRATE 25 MG TABLET PO (08:10)
[2023-04-18] MEDS: cloNIDine HCL 0.1 MG TABLET PO ×2 (08:10→12:36)
[2023-04-18] MEDS: FUROSEMIDE 40 MG TABLET PO (08:10)
[2023-04-18] MEDS: ENOXAPARIN 30 MG/0.3 ML SYRINGE SUB-Q (08:10)
--- NOTE | 2023-04-18 11:56 | PCSTNOTE ---
Modified barium swallow study (MBSS) completed. Patient reportedly showed signs of possible aspiration with cold liquids. Results of MBSS are within functional limits. No penetration or aspiration observed. Recommendation: regular texture diet with thin liquids. Avoid ice cold beverages. Thank you for the referral of this patient.
--- NOTE | 2023-04-18 13:22 | PM.DS ---
DS: Admitting Diagnosis Discharge Date 04/18/2023 Admitting Diagnosis Aspiration pneumonitis with hypoxia DS: Discharge Diagnosis Discharge Diagnosis (1) Aspiration pneumonitis: Code(s): J69.0 - Pneumonitis due to inhalation of food and vomit Status: Acute Assessment and Plan: Improving (2) Acute lactic acidosis: Code(s): E87.21 - Acute metabolic acidosis Status: Acute Assessment and Plan: Resolved (3) Acute respiratory failure with hypoxia: Code(s): J96.01 - Acute respiratory failure with hypoxia Status: Acute Assessment and Plan: Resolved (4) Acute hyperkalemia: Code(s): E87.5 - Hyperkalemia Status: Acute Assessment and Plan: Resolved (5) Nausea & vomiting: Qualifiers: Vomiting type: unspecified Qualified Code(s): R11.2 - Nausea with vomiting, unspecified Code(s): R11.2 - Nausea with vomiting, unspecified Status: Acute Assessment and Plan: Resolved DS: Summary Hospital Course Reason for hospitalization: aspiration pneumonitis with hypoxia Hospital Course: She reports that she went outside to take her trash out and was wearing her slippers.? Her slippers were too big for her feet and she lost her slipper and fell.? She states any time she fall she has trouble getting up off the ground.? In fact that is how she ended up hospitalized in November with aspiration pneumonia was that she fell and could not get herself up off the floor and ended up aspirating while lying down.? In the ER the patient was sent down for a chest x-ray and x-rays of her knees as she was complaining of bilateral knee pain.? When the the medical transcription radiology later back to position her for the x-rays the patient vomited in and aspirated.? After she aspirated she developed acute hypoxia with oxygen saturations in the 70s.? The patient's x-ray prior to her event of aspiration was within normal limits.? Her oxygenation improved on 3 L nasal cannula.? due to penicillin allergy she was treated with ceftriaxone and metronidazole. Her oxygenation rapidly improved. By day of discharge she was on room air. She was tolerating her diet. She is up and about with physical therapy. A walker was recommended for stability. She passed a modified barium swallow study with no abnormalities. the patient wished to go home on April 18 due to needing to attend her nephew's wedding on April 19. On admission her creatinine was 1.5 which is her baseline. Her potassium was mildly elevated to 5.1. At discharge her chlordiazepoxide potassium and meclizine were held pending follow-up evaluation with her primary care physician Dr. Live Faria. Care coordination was consulted regarding obtaining a walker for her. She wanted a regular plain walker and not a Rollator. Care coordination informed her that it was not covered by insurance and she could purchase 1 at [employer]. Time Spent with Patient Time attestation: Total time spent providing and/or coordinating discharge services: Exam Narrative: Elderly female in no acute distress was alert oriented person place and time, pleasant and cooperative neck without JVD chest clear to auscultation heart regular rate abdomen bowel sounds present soft nontender extremities without edema cyanosis or clubbing musculoskeletal with bony enlargement of knees neurologic cranial nerves symmetric to visual inspection, tone normal in all 4 extremities, no tremors DS: Data Data Completed and Pending Labs on day of discharge: Preliminary micro results at discharge 04/17/23 06:55 Blood Culture - Preliminary Blood 04/17/23 06:55 Blood Culture - Preliminary Blood 04/17/23 02:25 Blood Culture - Preliminary Blood 04/17/23 02:25 Blood Culture - Preliminary Blood Discharge Plan Discharge Discharging Clinician: Jorge Jose Patient Disposition: Home, Self-Care Activity: no straining and no drivin
== END 2023-04-18 14:30 | disposition home or self-care (01) | DRG 177 ==
LOC: ANHED 04-17 02:38 → ANH3MEDSUR 04-18 13:27
PROVIDERS: Admitting Provider Internal Medicine; Emergency Provider Emergency Medicine; PCP Family Medicine; Visit Provider Internal Medicine
DX: J69.0 Pneumonitis due to inhalation of food and vomit (principal); J96.01 Acute respiratory failure with hypoxia; N18.4 Chronic kidney disease, stage 4 (severe); E87.21 Acute metabolic acidosis; I12.9 Hypertensive chronic kidney disease with stage 1 through stage 4 chronic kidney disease, or unspecified chronic kidney disease; I25.10 Atherosclerotic heart disease of native coronary artery without angina pectoris; E87.5 Hyperkalemia; E78.5 Hyperlipidemia, unspecified; S89.92XA Unspecified injury of left lower leg, initial encounter; S89.91XA Unspecified injury of right lower leg, initial encounter; M47.816 Spondylosis without myelopathy or radiculopathy, lumbar region; R11.2 Nausea with vomiting, unspecified; W19.XXXA Unspecified fall, initial encounter; Z79.82 Long term (current) use of aspirin; Z95.5 Presence of coronary angioplasty implant and graft
CPT/HCPCS: 36415; 70450; 71045; 73562; 80048; 80053; 81001; 83605; 83690; 83735; 84132; 85025; 87040; 87086; 87088; 92610; 92611; 93005; 96361; 96374; 96375; 97161; 97165; 99285; A9270; J0696; J0780; J1650; J2405; J7030

== ENCOUNTER 2023-04-24 10:34 | Outpatient (CLI) | payer MEDICARE, SELFPAY ==
[2023-04-24 11:21] LABS: Basophils Percent Auto 0.1 % (0.2-1.2); Hematocrit 34.9 % (37.0-47.0); Hemoglobin 11.4 g/dL (12.0-15.0); Immature Granulocyte Absolute 0.05 K/mm3 (0.00-0.031); Immature Granulocyte Percent A 0.4 % (0-0.5); Lymphocytes Absolute Auto 1.15 K/mm3 (0.9-3.2); Lymphocytes Percent Auto 9.2 % (18.3-44.2); Mean Corpuscular HGB Conc 32.7 g/dl (32-36); Mean Corpuscular Hemoglobin 30.1 pg (26-34); Mean Corpuscular Volume 92.1 fl (80-100); Monocytes Absolute Auto 0.4 K/mm3 (0.1-0.6); Monocytes Percent Auto 3.5 % (2.6-8.5); Neutrophils Absolute Auto 10.8 K/mm3 (1.3-6.7); Neutrophils Percent Auto 86.8 % (45.5-73.1); Platelet Count Result 213 k/mm3 (150-375); Red Blood Count 3.79 M/mm3 (4.2-5.4); Red Cell Distribution Width 13.3 % (11.5-14.5); White Blood Count 12.4 K/mm3 (4.5-10.0)
[2023-04-24 11:35] LABS: Anion Gap 11 mmol/L (8-16); Blood Urea Nitrogen 38 mg/dL (7-17); Calcium 9.2 mg/dL (8.4-10.2); Carbon Dioxide 27 mmol/L (22-30); Chloride 100 mmol/L (98-107); Estimated Glomerular Filt Rate 25; Glucose 124 mg/dL (65-110); Potassium 4.5 mmol/L (3.4-5.0); Sodium 138 mmol/L (137-145)
== END 2023-04-24 10:35 | disposition home or self-care (01) ==
PROVIDERS: PCP Family Medicine; Visit Provider Family Medicine
DX: D72.829 Elevated white blood cell count, unspecified (principal); E87.5 Hyperkalemia
CPT/HCPCS: 36415; 80048; 85025

== ENCOUNTER 2023-08-17 14:37 | Outpatient (CLI) | payer MEDICARE, SELFPAY ==
[2023-08-17 15:44] LABS: Thyroid Stimulating Hormone 0.024 uIU/mL (0.465-4.680)
[2023-08-17 15:50] LABS: Free T4 Free Thyroxine 1.29 ng/mL (0.78-2.19)
== END 2023-08-17 14:38 | disposition home or self-care (01) ==
LOC: ANHLAB 14:38
PROVIDERS: PCP Family Medicine; Visit Provider Family Medicine
DX: E05.90 Thyrotoxicosis, unspecified without thyrotoxic crisis or storm (principal); R79.89 Other specified abnormal findings of blood chemistry
CPT/HCPCS: 36415; 84439; 84443

== ENCOUNTER 2024-01-05 13:48 | Outpatient (CLI) | payer MEDICARE, SELFPAY ==
--- NOTE | ~2024-01-05 | XR_ITS ---
AP and lateral views of the left hip Clinical history: Pain Findings: No acute fracture or dislocation is seen. Osseous alignment is anatomic. The left hip joint is preserved. Soft tissues are unremarkable. Impression: No significant abnormality is seen. Reviewed, dictated and finalized at location . ER LABELS Impression: No significant abnormality is seen.
--- NOTE | ~2024-01-05 | XR_ITS ---
Lumbosacral Spine: AP and lateral views Clinical History: Pain Findings: There is dextroscoliosis of the lower lumbar spine. No fracture evident. There is approxima te 2 cm anterolisthesis of L5 over S1. There is advanced facet arthropathy throughout the more spine. There are mild degenerative disc changes. The sacroiliac joints are normally outlined. Impression: 2 cm anterolisthesis of L5 over S1. Advanced facet arthropathy throughout the lumbar spine. Reviewed, dictated and finalized at location M. [facility] Impression: 2 cm anterolisthesis of L5 over S1. Advanced facet arthropathy throughout the lumbar spine.
== END 2024-01-05 13:49 | disposition home or self-care (01) ==
PROVIDERS: PCP Family Medicine; Visit Provider Family Medicine
DX: M47.817 Spondylosis without myelopathy or radiculopathy, lumbosacral region (principal); M47.896 Other spondylosis, lumbar region
CPT/HCPCS: 72100; 73502

== ENCOUNTER 2024-02-26 09:49 | Outpatient (CLI) | payer MEDICARE, SELFPAY ==
[2024-02-26 10:35] LABS: Hematocrit 35.9 % (37.0-47.0); Hemoglobin 11.7 g/dL (12.0-15.0); Mean Corpuscular HGB Conc 32.6 g/dl (32-36); Mean Corpuscular Hemoglobin 30.8 pg (26-34); Mean Corpuscular Volume 94.5 fl (80-100); Mean Platelet Volume 10.7 fl (7.4-10.4); Platelet Count Result 168 k/mm3 (150-375); Red Cell Distribution Width 12.7 % (11.5-14.5); White Blood Count 6.1 K/mm3 (4.5-10.0)
[2024-02-26 11:03] LABS: LDL Cholesterol Direct 90 mg/dL
[2024-02-26 11:06] LABS: Alanine Aminotransferase 28 U/L (6-35); Albumin Level 4.2 g/dL (3.5-5.1); Alkaline Phosphatase 82 U/L (38-126); Anion Gap 6 mmol/L (4-12); Aspartate Amino Transferase 41 U/L (14-36); Bilirubin,Total 0.8 mg/dL (0.2-1.3); Blood Urea Nitrogen 29 mg/dL (7-17); Calcium 9.7 mg/dL (8.4-10.2); Carbon Dioxide 27 mmol/L (22-30); Chloride 103 mmol/L (98-107); Cholesterol 163 mg/dL (0-200); Estimated Glomerular Filt Rate 39; Glucose 93 mg/dL (65-110); HDL Direct 41 mg/dL; Potassium 4.9 mmol/L (3.4-5.0); Sodium 136 mmol/L (137-145); Triglycerides 168 mg/dL (<150)
[2024-02-26 11:19] LABS: Thyroid Stimulating Hormone 0.077 uIU/mL (0.465-4.680)
== END 2024-02-26 09:50 | disposition home or self-care (01) ==
LOC: ANHLAB 09:52
PROVIDERS: PCP Family Medicine; Visit Provider Family Medicine
DX: E78.5 Hyperlipidemia, unspecified (principal); I13.10 Hypertensive heart and chronic kidney disease without heart failure, with stage 1 through stage 4 chronic kidney disease, or unspecified chronic kidney disease; N18.4 Chronic kidney disease, stage 4 (severe); I25.10 Atherosclerotic heart disease of native coronary artery without angina pectoris; M47.816 Spondylosis without myelopathy or radiculopathy, lumbar region
CPT/HCPCS: 36415; 80053; 80061; 84443; 85027

== ENCOUNTER 2024-03-25 11:43 | Outpatient (CLI) | payer MEDICARE, SELFPAY ==
[2024-03-25 13:10] LABS: Thyroid Stimulating Hormone < 0.015 uIU/mL (0.465-4.680)
[2024-03-25 13:29] LABS: Free T4 Free Thyroxine 1.65 ng/mL (0.78-2.19)
[2024-03-28 08:18] LABS: Thyroid Peroxidase Antibodies 2 IU/mL (<9)
== END 2024-03-25 11:44 | disposition home or self-care (01) ==
PROVIDERS: PCP Family Medicine; Visit Provider Family Medicine
DX: E05.90 Thyrotoxicosis, unspecified without thyrotoxic crisis or storm (principal); I13.10 Hypertensive heart and chronic kidney disease without heart failure, with stage 1 through stage 4 chronic kidney disease, or unspecified chronic kidney disease
CPT/HCPCS: 36415; 84439; 84443; 86376

== ENCOUNTER 2024-04-19 09:38 | Outpatient (CLI) | payer MEDICARE, SELFPAY ==
--- NOTE | ~2024-04-19 | MR_ITS ---
MRI of the lumbar spine Clinical History: Radiculopathy Technique: Axial T2-weighted images, and sagittal T1-weighted, T2-weighted, and T2 fat-sat images wer e acquired. COMPARISON: 07/22/2021 Findings: There is 9 mm anterolisthesis of L5 over S1. There are type I Modic signal changes about th e L5-S1 disc space, as well as about the L2-L3 level disc space. No fracture evident. At L1-L2, there is moderate degenerative disc narrowing. There is diffuse disc bulge with moderate to severe facet arthropathy. No central canal stenosis. There is moderate to severe right neural forami nal narrowing, and moderate left neural foraminal narrowing. At L2-L3, there is moderate to advanced degenerative disc narrowing. Diffuse disc bulge and advanced facet arthropathy are present. There is minimal central canal stenosis. There is severe right neural foraminal narrowing, and moderate left neural foraminal narrowing. L3-L4, there is diffuse disc bulge with severe facet arthropathy. No central canal stenosis. There is moderate right neural foraminal narrowing, and minimal left neural foraminal narrowing. At L4-L5, there is mild disc bulge with moderate to advanced facet arthropathy. No central canal sten osis. There is moderate left neural foraminal narrowing, and mild right neural foraminal narrowing. At L5-S1, there is disc bulge/uncovering with severe facet arthropathy. There is moderate to advanced central canal stenosis. There is severe left neural foraminal narrowing and minimal right neural for aminal narrowing. Paravertebral soft tissues are unremarkable. Impression: 9 mm anterolisthesis of L5 over S1. 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 Reviewed, dictated and finalized at location M. Impression: 9 mm anterolisthesis of L5 over S1. 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
== END 2024-04-19 09:39 ==
LOC: MICIMG 09:38
PROVIDERS: PCP Family Medicine; Visit Provider Nurse Practitioner Family
DX: M54.16 Radiculopathy, lumbar region (principal); M43.06 Spondylolysis, lumbar region
CPT/HCPCS: 72148